=== PATIENT | male | born 1930 | race Caucasian/White ===

== ENCOUNTER 2017-10-10 10:33 | Outpatient (CLI) | payer MEDICARE | END 2017-10-10 10:34 | disposition home or self-care (01) | LOC: LABBT 10:33 | PROVIDERS: ATTEND Urology | DX: Z01.812 Encounter for preprocedural laboratory examination (principal); N13.30 Unspecified hydronephrosis | CPT/HCPCS: 80048; 85027; 85610; 85730 ==

== ENCOUNTER 2017-10-15 07:41 | Day surgery (SDC) | payer MEDICARE ==
[2017-10-10 13:15] VITALS: BMI 23.6
[2017-10-10 13:36] LABS: Anion Gap 11 mmol/L (10-20); BUN (Urea Nitrogen) 16 mg/dL (8.4-25.7); Calc. Creatinine Clearance 33 mL/min (70-130); Calcium 8.7 mg/dL (7.8-10.44); Carbon Dioxide 22 mmol/L (23-31); Chloride 110 mmol/L (98-107); Estimated GFR-MDRD 40; PTT 35.7 SEC (22.9-36.1); Prothrombin Time 16.3 SEC (12.0-14.7)
[2017-10-10 13:42] LABS: Hematocrit 37.1 % (42.0-52.0); Mean Platelet Volume 7.7 fL (7.4-10.4); Red Blood Cell (RBC) Count 4.21 mill/uL (4.70-6.10); White Blood Cell (WBC) Count 10.2 thou/uL (4.8-10.8)
[2017-10-15] MEDS ORDERED: cefTRIAXone\\ROCEPHIN 1 GM, Syringe 0.4 ML in Sterile Water 9.6 ML SLOW IVP SCH (10:00)
[2017-10-15] MEDS ORDERED: Fentanyl 100 MCG/2 ML VIAL ONE (10:28)
[2017-10-15] MEDS ORDERED: Iothalamate Meglumine 60% 50 ML VIAL FS ONE (10:38)
[2017-10-15] MEDS ORDERED: Lidocaine 1% PF 5 ML VIAL ONE (11:19)
[2017-10-15] MEDS ORDERED: Propofol 200 MG/20 ML VIAL ONE (11:19)
--- NOTE | 2017-10-15 12:32 | OP ---
DATE OF PROCEDURE: 10/15/2017 PREOPERATIVE DIAGNOSIS: Metastatic bladder cancer with obstructed left ureter, maintenance of left u reteral stent. POSTOPERATIVE DIAGNOSIS: Metastatic bladder cancer with obstructed left ureter, maintenance of left ureteral stent. PROCEDURES PERFORMED: Cystoscopy, removal of left stent, left retrograde, left stent replacement. SURGEON: Nathan Green M.D. ANESTHESIA: TIVA. ESTIMATED BLOOD LOSS: Minimal. DRAINS PLACED: New 4.8 x 24 cm double-J stent, no string was left attached to it. OPERATIVE TECHNIQUE: After obtaining written and verbal consent from the patient and after receiving IV antibiotics, he was taken to the operating suite. He was placed in the supine position on the tr eatment table. He was given some TIVA anesthetic. He was placed in the dorsal lithotomy position, s terilely prepped and draped, C-arm was brought in. Cystoscopy was performed with a 22-Bahraini sheath. This was well lubricated and passed under direct vision through the male urethra into the urinary b ladder with aid of a video camera and monitor. The bladder was filled and emptied a number of times. The distal end of the indwelling double-J stent was grasped and brought out through the urethral me atus. A guidewire was fed through this, but unfortunately it curled into the bladder. So we brought in a 5-Bahraini Pollack catheter and placed this into the left ureteral orifice and injected contrast to fill out the collecting system and fed a guidewire through it, removed the open-ended catheter and placed a stent over the guidewire, pushing up into place with aid of a pusher, so its proximal end c oiled in the renal pelvis and the distal end coiled in the bladder when the wire was removed. The bl adder was drained, the instruments were removed. He was taken out of dorsal lithotomy position, awak ened, extubated, and taken by stretcher to the recovery room.
--- NOTE | 2017-10-15 14:29 | RAD ---
RETROGRADE IVP: History: 87-year-old male with bladder cancer and left ureteral obstruction. Comparison: 05-23-17 FINDINGS: Two portable fluoroscopic spot images are presented for interpretation. There is contrast in the left upper collecting system. A left ureteral stent has been placed. IMPRESSION: Left ureteral stent placement. Mild dilatation of the left upper renal collecting system. Stable appe arance from prior study. POS: NADIA
== END 2017-10-15 13:12 | disposition home or self-care (01) ==
LOC: SDC 07:41
PROVIDERS: ATTEND Urology
PROC: 0T9780Z Drainage of Left Ureter with Drainage Device, Via Natural or Artificial Opening Endoscopic (ICD-10-PCS; principal; 2017-10-15)
DX: C67.9 Malignant neoplasm of bladder, unspecified (principal); C79.9 Secondary malignant neoplasm of unspecified site; N13.5 Crossing vessel and stricture of ureter without hydronephrosis; F03.90 Unspecified dementia, unspecified severity, without behavioral disturbance, psychotic disturbance, mood disturbance, and anxiety; E78.5 Hyperlipidemia, unspecified; I10 Essential (primary) hypertension; I25.10 Atherosclerotic heart disease of native coronary artery without angina pectoris; Z79.82 Long term (current) use of aspirin; Z79.01 Long term (current) use of anticoagulants; Z79.899 Other long term (current) drug therapy; Z98.42 Cataract extraction status, left eye; Z98.41 Cataract extraction status, right eye; Z96.1 Presence of intraocular lens; Z95.0 Presence of cardiac pacemaker; Z95.1 Presence of aortocoronary bypass graft; Z90.49 Acquired absence of other specified parts of digestive tract; Z90.89 Acquired absence of other organs; Z98.890 Other specified postprocedural states; Z87.891 Personal history of nicotine dependence
CPT/HCPCS: 52332; 74420; C1758; 80048; 85027; 85610; 85730; A4216; J0696; J2001; J2704; J3010; Q9961

== ENCOUNTER 2018-02-04 05:58 | Observation (INO) | payer MEDICARE ==
[2018-02-04 06:43] LABS: #Basophils 0.1 thou/uL (0.0-0.2); #Eosinphils 0.3 thou/uL (0.0-0.7); #Lymphocytes 2.2 thou/uL (1.20-3.40); #Monocytes 0.8 thou/uL (0.11-0.59); #Neutrophils 5.2 thou/uL (1.40-6.50); %Basophils 1.2 % (0.0-1.0); %Eosinophils 3.8 % (0.0-10.0); %Lymphocytes 25.1 % (21.0-51.0); %Neutrophils 60.9 % (42.0-75.0); Hemoglobin 11.2 g/dL (14.0-18.0); Mean Corpuscular HGB CONC 33.2 g/dL (32.0-36.0); Mean Corpuscular Hemoglobin 28.2 pg (27.0-31.0); Mean Corpuscular Volume 84.8 fl (80.0-94.0); Mean Platelet Volume 7.1 fL (7.4-10.4); Platelet Count 292 thou/uL (130-400); RBC Distribution Width 12.6 % (11.5-14.5); Red Blood Cell (RBC) Count 3.97 mill/uL (4.70-6.10); White Blood Cell (WBC) Count 8.6 thou/uL (4.8-10.8)
[2018-02-04] MEDS ORDERED: Fentanyl 250 MCG/5 ML VIAL ONE (06:52)
[2018-02-04 07:05] LABS: Anion Gap 10 mmol/L (10-20); BUN (Urea Nitrogen) 17 mg/dL (8.4-25.7); Calc. Creatinine Clearance 28 mL/min (70-130); Calcium 8.6 mg/dL (7.8-10.44); Carbon Dioxide 22 mmol/L (23-31); Chloride 111 mmol/L (98-107); Estimated GFR-MDRD 40; Glucose 93 mg/dL (83-110); Potassium 3.8 mmol/L (3.5-5.1); Sodium 139 mmol/L (136-145)
[2018-02-04] MEDS ORDERED: Iothalamate Meglumine 60% 50 ML VIAL FS ONE (07:07)
[2018-02-04] MEDS ORDERED: CEFAZOLIN/Water 2 GM/20 ML SYRINGE ONE (07:24)
--- NOTE | 2018-02-04 08:34 | OP ---
DATE OF PROCEDURE: 02/04/2018 PREOPERATIVE DIAGNOSES: Metastatic bladder cancer and obstructed left ureter managed with stent. POSTOPERATIVE DIAGNOSES: Metastatic bladder cancer and obstructed left ureter managed with stent. PROCEDURE PERFORMED: Cysto, removal of left stent, left retrograde, and stent replacement. SURGEON: Dr. Nathan Green ANESTHESIA: TIVA. ESTIMATED BLOOD LOSS: 50-75 mL. DRAINS PLACED: 4.8 x 24 double-J stent without a string attached on the left side and an 18 Bangladeshi F oley catheter was passed because he did have some bleeding. FINDINGS: He had no stricture disease, moderate BPH. He did have some regrowth of a tumor has some area of necrosis near the left ureteral orifice. It did have some problems with bleeding during the stent removal and replacement, for this reason a catheter was placed. The retrograde study showed he does not have at this point hydronephrosis, but I think this is because he has a stent in place. OPERATIVE TECHNIQUE: After obtaining written and verbal consent from the patient after receiving IV antibiotics, he was taken the operating suite. He was placed in the supine position on the treatment table. PlexiPulses were placed on his lower extremities and turned on. He was given a general anes thetic, oral obturator intubation. He was placed in the dorsal lithotomy position, sterilely prepped and draped. He was positioned under the C-arm. A geotechnical laboratory technician film was taken with fluoroscopy unit. Cyst oscopy was performed with a 22-Bangladeshi sheath. This was well lubricated and passed under direct visio n through the male urethra and into the urinary bladder with aid of a 30-degree lens and video camera and monitor. His bladder was filled and emptied a number of times. The distal end of the indwellin g stent was grasped and brought out through the urethral meatus. A guidewire was fed through it and the stent was removed off the guidewire and discarded. A 5 Bangladeshi Pollack catheter was placed over t he guidewire and up into the renal pelvis. The wire was removed. Contrast was injected filling out a nonobstructed collecting system down to the pelvic inlet. The wire was replaced. The open-ended c atheter was removed and a new 4.8 x 24 cm double-J stent was placed over the guidewire and pushed up in place with aid of a pusher so its proximal end coiled in the renal pelvis and its distal end coile d in the bladder when the wire was removed. The bladder was filled and emptied. There was some blee ding from the tumor site and it did not appear to be much and maybe to be related to him being on Irene mayra. A Harrison catheter there was placed because of this and will watch him for a little bit in regar ds to this urine. He may not be able go home today and will have him hold his Eliquis at this point. Normally we have been able to change these without him holding Eliquis without much difficulty. At this point, he was awakened, extubated, and taken by stretcher to the recovery room.
--- NOTE | 2018-02-04 09:21 | RAD ---
IVP RETROGRADE: Date: 02/04/18 HISTORY: Stent replacement. COMPARISON: IVP retrograde dated 10/15/17. FINDINGS: There is replacement of the left ureteral stent. On the last image, there is mild residual dilatation of the renal calices and renal pelvis, similar to the comparison examinations. IMPRESSION: Stent replacement. POS: NADIA
[2018-02-04] MEDS ORDERED: B & O ONE (12:14)
[2018-02-04] MEDS ORDERED: Sodium Chloride 0.9% 10 ML ONE (12:58)
[2018-02-04 14:33] VITALS: BMI 24.5
[2018-02-04] MEDS: D5 1/2 NS w/10 mEq KCl 1,000 ML/1,000 ML BAG IV SCH (16:12)
[2018-02-04] MEDS: hydrALAZINE 25 MG TAB PO SCH ×2 (16:12→21:28)
[2018-02-04] MEDS: Dronedarone HCl 400 MG TAB PO SCH (16:12)
[2018-02-04] MEDS ORDERED: Propofol 200 MG/20 ML VIAL ONE (17:03)
[2018-02-04] MEDS ORDERED: Lidocaine 1% PF 5 ML VIAL ONE (17:03)
[2018-02-04] MEDS ORDERED: Atorvastatin Calcium 20 MG TAB PO SCH (21:00)
[2018-02-04] MEDS ORDERED: Donepezil HCl 10 MG TAB PO SCH (21:00)
[2018-02-04] MEDS: B & O PR SCH ×2 (21:03→21:29)
[2018-02-04] MEDS: traMADol HCl 50 MG TAB PO PRN (21:28)
[2018-02-04] MEDS: Nitrofurantoin Monohyd/M-Cryst 100 MG CAP PO SCH (21:28)
[2018-02-05] MEDS: D5 1/2 NS w/10 mEq KCl 1,000 ML/1,000 ML BAG IV SCH (02:00)
[2018-02-05] MEDS: traMADol HCl 50 MG TAB PO PRN (02:36)
[2018-02-05] MEDS ORDERED: Potassium Chloride 10 MEQ TAB PO SCH (08:00)
[2018-02-05] MEDS: hydrALAZINE 25 MG TAB PO SCH (08:23)
[2018-02-05] MEDS: Dronedarone HCl 400 MG TAB PO SCH (08:23)
[2018-02-05] MEDS: Nitrofurantoin Monohyd/M-Cryst 100 MG CAP PO SCH (08:24)
[2018-02-05] MEDS ORDERED: Aspirin 81 mg Enteric Coated Tablet PO SCH (09:00)
[2018-02-05] MEDS ORDERED: Cyanocobalamin (Vitamin B-12) 1,000 MCG TAB PO SCH (09:00)
[2018-02-05] MEDS ORDERED: Lisinopril 20 MG TAB PO SCH (09:00)
[2018-02-05 12:50] VITALS: BP 175/81; TEMP 98.3
== END 2018-02-05 14:30 | disposition home or self-care (01) ==
LOC: SDC 05:58 → SURG B 12:40 → SJJU 13:18
PROVIDERS: ADMIT Urology; ATTEND Urology
PROC: 0T778DZ Dilation of Left Ureter with Intraluminal Device, Via Natural or Artificial Opening Endoscopic (ICD-10-PCS; principal; 2018-02-04)
PROC: 0TP98DZ Removal of Intraluminal Device from Ureter, Via Natural or Artificial Opening Endoscopic (ICD-10-PCS; 2018-02-04)
DX: C67.2 Malignant neoplasm of lateral wall of bladder (principal); I10 Essential (primary) hypertension; E78.00 Pure hypercholesterolemia, unspecified; I48.91 Unspecified atrial fibrillation; I25.10 Atherosclerotic heart disease of native coronary artery without angina pectoris; E78.5 Hyperlipidemia, unspecified; Z79.82 Long term (current) use of aspirin; Z79.01 Long term (current) use of anticoagulants; Z79.2 Long term (current) use of antibiotics; Z79.899 Other long term (current) drug therapy; Z95.1 Presence of aortocoronary bypass graft; Z95.0 Presence of cardiac pacemaker; Z98.890 Other specified postprocedural states
CPT/HCPCS: 52332; 74420; 80048; 85025; 93005; 96360; 96361 ×2; C1758; G0378; 36415; 93010; J2001; J2704; J3010; Q9961

== ENCOUNTER 2018-06-05 09:47 | Outpatient (CLI) | payer MEDICARE ==
[2018-06-05 10:51] LABS: Hemoglobin 10.5 g/dL (14.0-18.0); Mean Corpuscular HGB CONC 32.6 g/dL (32.0-36.0); Mean Corpuscular Hemoglobin 27.6 pg (27.0-31.0); Mean Corpuscular Volume 84.6 fL (78.0-98.0); Mean Platelet Volume 7.2 fL (7.4-10.4); Platelet Count 269 thou/uL (130-400); RBC Distribution Width 12.6 % (11.5-14.5); Red Blood Cell (RBC) Count 3.81 mill/uL (4.70-6.10); White Blood Cell (WBC) Count 8.4 thou/uL (4.8-10.8)
[2018-06-05 11:18] LABS: Anion Gap 11 mmol/L (10-20); BUN (Urea Nitrogen) 16 mg/dL (8.4-25.7); Calc. Creatinine Clearance 0 mL/min (70-130); Calcium 8.5 mg/dL (7.8-10.44); Carbon Dioxide 21 mmol/L (23-31); Chloride 111 mmol/L (98-107); Estimated GFR-MDRD 38; Glucose 88 mg/dL (83-110); Sodium 139 mmol/L (136-145)
[2018-06-05 12:02] LABS: INR-International Normal Ratio 1.3; PTT 36.4 SEC (22.9-36.1); Prothrombin Time 16.2 SEC (12.0-14.7)
== END 2018-06-05 09:48 | disposition home or self-care (01) ==
LOC: LABBT 09:47
PROVIDERS: ATTEND Urology
DX: Z01.812 Encounter for preprocedural laboratory examination (principal); N13.1 Hydronephrosis with ureteral stricture, not elsewhere classified; C67.2 Malignant neoplasm of lateral wall of bladder
CPT/HCPCS: 80048; 85027; 85610; 85730; 87086

== ENCOUNTER 2018-07-12 21:30 | Inpatient (IN) | payer MEDICARE ==
[2018-07-12 22:04] LABS: #Basophils 0.1 thou/uL (0.0-0.2); #Eosinphils 0.6 thou/uL (0.0-0.7); #Lymphocytes 2.4 thou/uL (1.20-3.40); #Monocytes 1.1 thou/uL (0.11-0.59); #Neutrophils 8.8 thou/uL (1.40-6.50); %Basophils 0.9 % (0.0-1.0); %Eosinophils 4.7 % (0.0-10.0); %Lymphocytes 18.3 % (21.0-51.0); %Monocytes 8.3 % (0.0-10.0); %Neutrophils 67.8 % (42.0-75.0); Hemoglobin 9.9 g/dL (14.0-18.0); Mean Corpuscular HGB CONC 33.5 g/dL (32.0-36.0); Mean Corpuscular Volume 83.5 fL (78.0-98.0); Mean Platelet Volume 6.9 fL (7.4-10.4); Platelet Count 312 thou/uL (130-400); RBC Distribution Width 13.1 % (11.5-14.5); Red Blood Cell (RBC) Count 3.54 mill/uL (4.70-6.10)
[2018-07-12 22:24] LABS: ALT (SGPT) 11 U/L (8-55); AST (SGOT) 15 U/L (5-34); Albumin 3.7 g/dL (3.4-4.8); Alkaline Phosphatase 77 U/L (40-150); Anion Gap 14 mmol/L (10-20); BUN (Urea Nitrogen) 21 mg/dL (8.4-25.7); Bilirubin, Total 0.4 mg/dL (0.2-1.2); Calc. Creatinine Clearance 0 mL/min (70-130); Calcium 8.5 mg/dL (7.8-10.44); Carbon Dioxide 20 mmol/L (23-31); Chloride 107 mmol/L (98-107); Estimated GFR-MDRD 30; Globulin 3.5 g/dL (2.4-3.5); Glucose 143 mg/dL (83-110); Potassium 4.1 mmol/L (3.5-5.1); Protein, Total 7.2 g/dL (5.8-8.1); Sodium 137 mmol/L (136-145)
[2018-07-12 23:23] LABS: INR-International Normal Ratio 1.1; Prothrombin Time 14.7 SEC (12.0-14.7)
[2018-07-12 23:24] LABS: PTT 32.7 SEC (22.9-36.1)
[2018-07-13] MEDS ORDERED: Ondansetron ODT 4 MG TAB SL PRN (01:59)
[2018-07-13] MEDS ORDERED: Ondansetron HCl/PF 4 MG/2 ML Vial IVP PRN (01:59)
[2018-07-13 02:58] LABS: Hemoglobin 9.3 g/dL (14.0-18.0); Platelet Count 264 thou/uL (130-400)
[2018-07-13] MEDS ORDERED: Sodium Chloride 0.9% 10 ML ONE (04:10)
[2018-07-13] MEDS ORDERED: Morphine 4 MG/ML VIAL SLOW IVP SCH (05:00)
[2018-07-13] MEDS ORDERED: Acetaminophen 500 MG TAB PO PRN (05:01)
[2018-07-13] MEDS ORDERED: Oxybutynin 5 MG TAB PO PRN (05:01)
[2018-07-13] MEDS ORDERED: traMADol HCl 50 MG TAB PO PRN (05:03)
[2018-07-13] MEDS ORDERED: Lorazepam 2 MG/ML VIAL SLOW IVP SCH ×2 (05:45→10:45)
[2018-07-13] MEDS ORDERED: diphenhydrAMINE 50 MG/ML VIAL IVP SCH (05:45)
[2018-07-13 06:09] LABS: Hemoglobin 8.3 g/dL (14.0-18.0); Platelet Count 248 thou/uL (130-400)
[2018-07-13] MEDS: Lisinopril 20 MG TAB PO SCH (08:44)
[2018-07-13] MEDS: Dronedarone HCl 400 MG TAB PO SCH ×2 (08:44→18:19)
[2018-07-13] MEDS: Potassium Chloride 10 MEQ TAB PO SCH (08:44)
[2018-07-13] MEDS: Docusate 100 MG CAP PO SCH ×2 (08:44→21:23)
[2018-07-13] MEDS: Metoprolol Tartrate 50 MG TAB PO SCH ×2 (08:44→21:23)
[2018-07-13] MEDS: Donepezil HCl 10 MG TAB PO SCH (08:44)
[2018-07-13] MEDS: Cyanocobalamin (Vitamin B-12) 1,000 MCG TAB PO SCH (08:44)
[2018-07-13] MEDS: hydrALAZINE 25 MG TAB PO SCH ×3 (08:44→21:23)
--- NOTE | 2018-07-13 09:44 | CON ---
DATE OF CONSULTATION: 07/13/2018 CONSULTING PHYSICIAN: Dr. Gallego. CONSULTED PHYSICIAN: Ayad Ball M.D. REASON FOR CONSULTATION: Gross hematuria with clot retention. HISTORY OF PRESENT ILLNESS: Mr. Andrews is an 88-year-old white male who is a patient of Dr. Borrero . He has a known history of bladder cancer which had previously been resected. He was on BCG treatm ents but unfortunately, the cancer has progressed to the point where the patient is considered BCG re fractory. During this time, the patient has started developing hematuria. I was contacted this even ing by the who stated that the patient was unable to urinate and was only having drops of blood and was in significant pain. I would recommend he be brought into the emergency room. He was taken into the ER where a 16 Bruneian Harrison catheter was placed with release of dark red urine which subseque ntly stopped flowing. The ER doctor called me and I recommended changing his catheter out to a 22-Fr ench three-way Harrison catheter so that his bladder could be irrigated and CBI could be initiated. Unf ortunately, the ER did not put in a 3-way catheter, but just put in a 22-Bruneian regular catheter. He was admitted to the floor and I was contacted again by the Hospitalist who stated that his catheter had clotted off and he was no longer draining. I again recommended that he had his catheter changed to a 3-way catheter. After removing the 22 Bruneian 2-way catheter, the nurses could not get the three -way catheter back in and the patient attempted to get up to go to the bathroom at which point he had a vasovagal episode and collapsed. A code was called, but the patient was not found to be in any ty pe of arrhythmia or arrest, but simply had a vasovagal episode. I was contacted for assistance and r eplacement of the catheter. When I discussed with the patient, he does not have any family at [facility]. His has left for the evening and his son is currently not available. I attempted to speak w ith the patient, but he is not answering questions and is relatively delirious and agitated and is no t answering questions appropriately. Most of the history is obtained either through the prior conver sation on the phone with the , nursing staff and medical team. ALLERGIES: None. HOME MEDICATIONS: 1. Aspirin. 2. Hydralazine. 3. Lisinopril. 4. Simvastatin. 5. Donepezil. 6. Eliquis. 7. Potassium chloride. 8. Metoprolol. 9. Vitamin D3. 10. Vitamin B12. PAST MEDICAL HISTORY: 1. Bladder cancer. 2. Hypertension. 3. High cholesterol. 4. Heart history unspecified. 5. Dementia. 6. Pancreatitis. PAST SURGICAL HISTORY: 1. CABG. 2. Cholecystectomy. 3. Carotid endarterectomy. 4. TURBT. 5. Pacemaker placement. FAMILY HISTORY: Noncontributory. SOCIAL HISTORY: Patient apparently lives at home with his . He is a former smoker, but had quit . There is no recorded history of illicit drug use or alcohol abuse. REVIEW OF SYSTEMS: A 12 point review of systems cannot be obtained as the patient is extremely agita bola, repeating that he has to urinate over and over and he is not otherwise answering questions. PHYSICAL EXAMINATION: VITAL SIGNS: Temperature 98.6, pulse 73, respirations 20, blood pressure 160/89, saturation 100% on room air. GENERAL: Agitated, combative and not answering questions. Appears stated age. Well-nourished, well -developed. HEENT: Normocephalic, atraumatic. Sclerae are nonicteric. Pupils are symmetric and round. CARDIOVASCULAR: Regular rate, somewhat irregular rhythm, although it is difficult on his tele record and by auscultation as the patient is extremely combative and moving around. Pulses appear symmetri c. CHEST: No increased work of breathing. Symmetric expansion of lungs. Clear anteriorly from what ca n be auscultated. ABDOMEN: Soft, nondistended. Tenderness in the suprapubic area. No rebound, guarding or peritoneal signs. No masses. There is distention of the bladder. GENITOURINARY: Patient is circumcised. There is blood at the meatus. Testes are bilaterally descen ded. Rectal exam was deferred. EXTREMITIES: No clubbing, cyanosis or edema. MUSCULOSKELETAL: No obvious joint deformities, joint erythema noted. Range of motions appears adequ ate, although the patient is not following commands for proper examination. SKIN: Warm, dry, no rashes or lesions. Poor turgor. NEUROLOGIC: Cranial nerves II-XII appear grossly intact. Neurological exam cannot be performed due to patient compliance. PSYCHIATRIC: The patient is alert. Orientation could not be assessed as patient again is not answer ing questions. He is extremely agitated currently and combative, attempting to get up out of bed and is not listening to the medical staff. LABORATORY DATA: Upon laboratory evaluation, a full set of labs are in the [employer] system, which I have reviewed. Of note, the patient's hemoglobin is currently 9.3 with hematocrit of 27. White coun t was 13 at admission. INR is 1.1, creatinine is currently 2.12. ASSESSMENT AND PLAN: An 88-year-old white male with hematuria and clot retention. The patient has h ad a catheter replaced and was not found to have a false passage as well, probably from multiple cath eter exchanges and possibly patient combativeness. A large amount of clot was irrigated out of his b ladder and CBI has been initiated with significant resolution of his hematuria. The patient is likel y actively still bleeding. However, this may stop with cessation of his Eliquis, which I would recom mend holding along with his aspirin. The patient has been admitted to the medicine service, which I agree with. I will continue to follow along to allow the hematuria to resolve on its own. In most c ases, the hematuria will stop once the patient's anticoagulation is reversed and the patient is less agitated for the time being given his altered mental status. I would recommend 4-point restraints wi th mitten gloves to avoid patient accidentally ripping his catheter out. We will continue the CBI in the meantime to avoid repeat clot retention and continue monitoring his other health issues. DESCRIPTION OF PROCEDURE: The patient was prepped and draped in the usual sterile fashion for cystos copy. A flexible cystoscope was passed with ease through the urethra. Near the bulbar urethra, the patient was noted to have a false passage. The prostate appears hyperemic, but otherwise again it wa s a little bit difficult to evaluate properly due to blood clots. We were able to pass the camera ul timately into the bladder which demonstrated extremely large clot. Visualization of the bladder is o therwise not possible. The patient does have known ureteral stents which were not visualized during the cystoscopy. An Amplatz Super Stiff wire was placed through the cystoscope into the bladder. The cystoscope was then removed. A 22-Bruneian three-way Harrison catheter was fashioned into a Councill tip catheter using a 14 gauge Angiocath needle, which was then guided over the Super Stiff wire into the bladder with ease. A 30 mL of sterile water placed into the balloon and the catheter hand irrigated with 1 liter of normal saline with evacuation of extremely large amount of clot. Upon removal of al l clots, the patient's urine was a goodwin red color. CBI was initiated which resulted in the urine t urning out light pink. This was then affixed to the patient's leg with a StatLock. Patient did comp vladimir of a lot of pain and will be given medications for bladder spasms and pain control to help these things, but did seem to feel much better once the procedure was completed. SUMMARY OF RECOMMENDATIONS: 1. Continue CBI. 2. Hold Eliquis and aspirin. 3. Antibiotic prophylaxis with Levaquin. 4. SCDs for DVT prophylaxis. 5. Medicine to manage patient's generalized medical problems. 6. We will continue to monitor the patient for resolution of his hematuria with holding of his antic oagulants. If the bleeding persists despite holding anticoagulants for several days, it may be magnolia coelho to take him to the operating room for cauterization of bleeding areas. I will continue to alex cabello over the weekend and I will discuss the case with Dr. Green, his primary urologist upon his return on Sunday.
[2018-07-13] MEDS ORDERED: Senokot 8.6 MG TAB PO PRN (10:45)
[2018-07-13] MEDS ORDERED: Bisacodyl 5 MG TAB PO PRN (10:45)
--- NOTE | 2018-07-13 11:52 | PDOC.EVN ---
Event Note - Event Note Event Note: h&p [id number]
--- NOTE | 2018-07-13 12:09 | HP ---
PRIMARY CARE PHYSICIAN: Morgan Barton M.D. UROLOGIST: Ayad Ball M.D. CHIEF COMPLAINT: Bloody urine. HISTORY OF PRESENT ILLNESS: This is an 88-year-old male with a known history of dementia, bladder cancer, status post resection who presented with a chief complaint of bloody urine and abdominal pain. Patient unfortunately at the time of my evaluation is rather delirious and unable to provide adequate history. He has a daughter at bedside who is not completely sure on the timeframe that his symptoms had started. REVIEW OF SYSTEMS: Remainder of the review of systems: CONSTITUTIONAL: No significant weight loss or gain. No fevers or chills within the last week that the daughter is aware of. HEENT: Patient is really unable to respond for me. CARDIOVASCULAR, RESPIRATORY, GI, GENITOURINARY; all really difficult to assess as the patient is conversant but unable to provide any answers. PAST MEDICAL HISTORY: 1. As per above, notable for bladder cancer. 2. Atrial fibrillation. 3. Coronary artery disease, status post CABG x4 in 2008. 4. Status post left heart catheterization in 1999. 5. Prior history of bradycardia as well. 6. Hypertension. 7. Hyperlipidemia. 8. Prior history of NSVT. 9. Right carotid endarterectomy in 2008. 10. Status post tonsillectomy and status post prostate biopsy. 11. Status post skin cancer removal. 12. Status post breast sebaceous cyst removal. HOME MEDICATIONS: Currently includes the following; cholecalciferol 1000 units p.o. daily, hydralazine 0.5 tab p.o. t.i.d., simvastatin 0.5 tab p.o. at bedtime , potassium chloride 10 mEq p.o. daily, metoprolol 50 mg p.o. b.i.d., tartrate or Lopressor, lisinopril 40 mg p.o. q.a.m., dronedarone or Multaq 400 mg p.o. b.i.d., donepezil 10 mg p.o. daily, cyanocobalamin 1000 mcg p.o. daily, aspirin 81 mg p.o. daily, apixaban 2.5 mg p.o. b.i.d. ALLERGIES: No known drug allergies. FAMILY HISTORY: The patient's daughter at bedside is not aware of any other family members with issues regarding hematuria and bladder cancer. SOCIAL HISTORY: The patient currently lives at home. He has a significant component of dementia. His daughter and two sons would be shared medical decision makers for him. They endorse him being FULL CODE at this point in time. PHYSICAL EXAMINATION: GENERAL: The patient is confused, is able to state his name only, oriented x1. HEENT: Normocephalic, atraumatic. Equal ocular motions are intact, slightly dry mucous membranes. CARDIOVASCULAR: S1, S2. No murmurs, rubs or gallops. Pulses 2+ bilateral upper extremities, no pitting pedal edema. RESPIRATORY: Limited anterior examination. No apparent conversational dyspnea. Does not participate actively with examination, but I do not appreciate any wheezes, rales or rhonchi. Lungs, grossly clear to auscultation bilaterally. GASTROINTESTINAL: Positive bowel sounds. Soft, nontender to palpation that I can elicit. GENITOURINARY: Patient currently has a 3-way Harrison catheter in place that is undergoing continuous bladder irrigation. Urine in the bag is a pale pink color. LABORATORY DATA: WBC 13.0, hemoglobin 9.9, hematocrit 29.6, platelets 312. PT 14.7, INR 1.1. Sodium 137, potassium 4.1, chloride 107, bicarbonate 20, BUN 21 , creatinine 2.12, glucose 142, calcium 8.4, total bilirubin 0.4, AST 15, ALT 11 , alkaline phosphatase 77, total protein 7.2, albumin 3.7, patient's creatinine of 2.12 appears to demonstrate probable acute kidney injury on chronic renal disease with a baseline creatinine hovering anywhere from 1.6-1.8. ASSESSMENT AND PLAN: An 88-year-old male presenting with chief complaint of hematuria and abdominal pain. 1. Hematuria and abdominal pain with concern for a cystic clot. Appreciate Urology consultation. The patient is currently on a 3-way catheter, undergoing continuous bladder irrigation. Patient has been moved over to [facility] due to nursing concern of inability to co-manage patient's CBI due to staffing issues. The patient will have serial hemoglobin and hematocrit to monitor for any acute blood loss anemia. We will transfuse as needed for goal hemoglobin greater than 8 given the known history of cardiovascular disease as noted above. 2. Delirium. Likely secondary to multiple factors. I will continue supportive care. Sitter currently at bedside. The patient at risk for self removing medical assistive devices. 3. Probable acute kidney injury on chronic renal disease. We will continue with gentle IV hydration. Continue to closely monitor. 4. History of coronary artery disease, status post coronary artery bypass graft. Continue the patient on his home medications. Hold off on utilization of any pharmacological deep venous thrombosis prophylaxis. Hold off on anticoagulation at this point in time. 5. Diet: Cardiac. 6. Activity: As tolerated. 7. Deep venous thrombosis prophylaxis, sequentials. MTDD
[2018-07-13 12:10] LABS: Hemoglobin 7.7 g/dL (14.0-18.0); Platelet Count 249 thou/uL (130-400)
--- NOTE | 2018-07-13 13:10 | PRG ---
DATE OF SERVICE: 07/13/2018 SUBJECTIVE: The patient is currently sedated. He was extremely agitated overnight. He has a histor y of Alzheimer's and gets delirious very easily. He is currently restrained and has been receiving s edatives to keep him comfortable. He is not answering questions, but his family is at bedside statin g that he has been relatively comfortable while he has been asleep. He did have a few more blood magdaleno ts in the bladder, which were irrigated out by the nurse and his CBI is now running well. OBJECTIVE: VITAL SIGNS: Temperature 97.6, pulse 77, respirations 16, blood pressure 106/51, saturations 100% on room air. GENERAL: Currently, sedated and sleeping, breathing on his own. Appears calm. The patient was not awakened due to his agitation. CARDIOVASCULAR: Paced, but regular rate and rhythm. Normal S1 and S2. CHEST: No increased work of breathing. ABDOMEN: Soft, nontender, nondistended. The patient did not flinch with bladder palpation. GENITOURINARY: Harrison catheter appears secured with relatively clear urine running on a moderate CBI drip. EXTREMITIES: SCDs on. No clubbing, cyanosis, or edema. Four-point restraints and hand mittens are also in place. LABORATORY EVALUATION: The full set of labs are in the [facility], which I have reviewed. Of nancy parekh, patient's hemoglobin is currently 7.7. Creatinine has not been rechecked this morning, but was last 2.12. ASSESSMENT AND PLAN: An 88-year-old white male with Alzheimer's disease, dementia, and current alter ed mental status and delirium with hematuria, currently on anticoagulation, which has been held, but has not yet cleared out of his system. I would recommend continuation of his CBI in restraints, as t he patient is extremely high risk for pulling his catheter out. I do anticipate that his hematuria m ay clear significantly once his anticoagulation has been held, but this will take at least 48 hours f or the Eliquis to leave his system. We will continue to monitor and keep his bladder irrigation runn ing while the Eliquis gets out of his system, at which point he may be amenable to see if his CBI can be stopped. His catheter will need to remain in for at least 7 days given that he does have a false passage that was created in the attempt by nursing staff to place the 3-way Harrison catheter. This ca n be removed at a later date after adequate healing of the urethra. Medical management continued per Medicine team. I will continue to follow until Sunday, at which point I will turn the case over to Dr. Green again.
--- NOTE | 2018-07-13 15:40 | CON ---
DATE OF SERVICE: 07/13/2018 SERVICE: Pulmonary Medicine. REASON FOR CONSULTATION: [facility] patient. HISTORY OF PRESENT ILLNESS: Patient is an 88-year-old white male with past medical history significant for transition cell carcinoma. He underwent a scraping of the bladder cancer a week ago. He also has atrial fibrillation and is on chronic anticoagulation. Shortly following this procedure, he started having hematuria. He was brought into the hospital and underwent continuous bladder irrigation. The bleeding did not stop. The irrigation rate was increased, but ultimately, his nursing requirements prevented him from getting adequate care on the floor. As such, he was transitioned to the [facility]. He received morphine and Ativan in order to prevent significant agitation associated with his underlying dementia. He is hypersomnolent at this point. With stimulation, he will wake up, but within 3 seconds, he will drift brought back into sleep. He cannot provide any additional elements of the history at this time. PAST MEDICAL HISTORY: 1. Transition cell carcinoma of the bladder. 2. Atrial fibrillation, chronic. 3. Coronary artery disease. 4. Hypertension. 5. Dyslipidemia. 6. History of nonsustained ventricular tachycardia. PAST SURGICAL HISTORY: 1. Coronary bypass graft in 2008. 2. Cardiac catheterization in 1999. 3. Right carotid endarterectomy. 4. Tonsillectomy. 5. Prostate biopsy. 6. Excision of skin cancer. 7. Sebaceous cyst excision. ALLERGIES: No known drug allergies. MEDICATIONS: List of his inpatient medications were reviewed. No specific updates were made at this time. FAMILY HISTORY: Noncontributory. SOCIAL HISTORY: He lives at home. He is fairly functional in his ADLs. He is able to dress himself and get around under his own volition. He is not able to drive any longer because of mentation issues and no longer does the finances. I have had a conversation with both , son at bedside. They are suggesting to me at this time that if he were to get worse and not better, they would like to transition over to comfort care only understanding that he be passing away during this hospital stay. REVIEW OF SYSTEMS: This cannot be obtained because the patient is currently under the influence of sedating medications. PHYSICAL EXAMINATION: VITAL SIGNS: Afebrile, pulse 77, blood pressure 111/49, respirations 16, saturation 100% on room air. GENERAL: The patient is somnolent. HEENT: Normocephalic, atraumatic. Sclerae are white, conjunctivae pink. Oral mucosa is moist without lesions. LUNGS: Excellent air entry. There is no prolonged expiratory phase, wheezing, rhonchi or crackles. HEART: Normal rate, regular. ABDOMEN: Soft, nontender, nondistended. Bowel sounds are positive. MUSCULOSKELETAL: No cyanosis or clubbing. There is no pitting in the bilateral lower extremities. NEUROLOGIC: Grossly nonfocal. LABORATORY DATA: WBC 13.0, hemoglobin has steadily declined from 9.9-7.7 over 4 blood draws. INR 1.1. Creatinine 2.12, slightly above baseline. Basic metabolic profile and liver function studies are otherwise unremarkable. ASSESSMENT: 1. Transition cell carcinoma. 2. Acute blood loss anemia. 3. Hematuria. 4. Metabolic encephalopathy. 5. Alzheimer disease, advanced. DISCUSSION AND PLAN: We will continue CBI and decrease the rate as he continues to clear. Pulmonary Critical Care will continue to follow in this location. We will repeat hemoglobin in another 4-6 hours. If his hemoglobin drops any further, transfusion will be performed. Pulmonary Critical Care will continue to follow along. It appears that he is clearing his urine. Hopefully , in 24-48 hours, he will be in a position where we get him back to the floor. The family is very concerned that the Harrison catheter is going to have to stay in place for a full 7 days. It is nearly impossible for them that to accomplish this in the home setting. As such, requesting that we consider transitioning him to a nursing facility for a brief period of time until the Harrison can be removed. We will have case management look into that. Furthermore , we had a conversation today about code status. They have decided to transition him over to a DNI/DNR. We will do everything we can from up to a point if he needs endotracheal intubation or chest compressions. These maneuvers would not be performed. They understand that if he required and we do not do them, he would be passing away during the hospital stay. It is not my expectation that this will occur, but if it does, it is always good to know what to do in advance. 70 minutes have been devoted to this patient in various activities. I personally reviewed all imaging studies and laboratory data noted within this document. For fifty percent of this time, I was interacting with the patient at the bedside or coordinating care with the care team. For the remainder of the time I was immediately available to the patient in the hospital unit. PANKAJ
[2018-07-13 19:28] LABS: Hemoglobin 7.6 g/dL (14.0-18.0); Platelet Count 256 thou/uL (130-400)
[2018-07-13] MEDS: Famotidine/PF 20 mg/2ml Vial SLOW IVP SCH (21:16)
[2018-07-13] MEDS: Atorvastatin Calcium 10 MG TAB PO SCH (21:23)
[2018-07-14 00:52] LABS: Hemoglobin 6.9 g/dL (14.0-18.0); Platelet Count 212 thou/uL (130-400)
[2018-07-14 03:43] LABS: #Basophils 0.1 thou/uL (0.0-0.2); #Lymphocytes 2.2 thou/uL (1.20-3.40); #Monocytes 1.1 thou/uL (0.11-0.59); #Neutrophils 10.9 thou/uL (1.40-6.50); %Basophils 0.4 % (0.0-1.0); %Eosinophils 0.3 % (0.0-10.0); %Lymphocytes 15.6 % (21.0-51.0); %Monocytes 7.5 % (0.0-10.0); %Neutrophils 76.1 % (42.0-75.0); Hemoglobin 7.1 g/dL (14.0-18.0); Mean Corpuscular HGB CONC 33.5 g/dL (32.0-36.0); Mean Corpuscular Hemoglobin 28.3 pg (27.0-31.0); Mean Corpuscular Volume 84.7 fL (78.0-98.0); Platelet Count 220 thou/uL (130-400); RBC Distribution Width 13.6 % (11.5-14.5); Red Blood Cell (RBC) Count 2.49 mill/uL (4.70-6.10); White Blood Cell (WBC) Count 14.3 thou/uL (4.8-10.8)
[2018-07-14] MEDS: Hyoscyamine Sulfate SL 0.125 mg Tablet SL PRN ×2 (03:55→14:51)
[2018-07-14 04:05] LABS: Anion Gap 15 mmol/L (10-20); BUN (Urea Nitrogen) 27 mg/dL (8.4-25.7); Calc. Creatinine Clearance 20 mL/min (70-130); Calcium 8.3 mg/dL (7.8-10.44); Carbon Dioxide 19 mmol/L (23-31); Chloride 108 mmol/L (98-107); Estimated GFR-MDRD 25; Glucose 109 mg/dL (83-110); Potassium 4.3 mmol/L (3.5-5.1); Sodium 138 mmol/L (136-145)
[2018-07-14 05:56] LABS: Hemoglobin 6.5 g/dL (14.0-18.0); Platelet Count 203 thou/uL (130-400)
[2018-07-14] MEDS: hydrALAZINE 25 MG TAB PO SCH ×3 (10:36→21:37)
[2018-07-14] MEDS: Lisinopril 20 MG TAB PO SCH (10:36)
[2018-07-14] MEDS: Potassium Chloride 10 MEQ TAB PO SCH (10:38)
[2018-07-14] MEDS: Metoprolol Tartrate 50 MG TAB PO SCH ×2 (11:13→21:37)
[2018-07-14] MEDS: Cyanocobalamin (Vitamin B-12) 1,000 MCG TAB PO SCH (11:14)
[2018-07-14] MEDS: Docusate 100 MG CAP PO SCH ×2 (11:15→21:36)
[2018-07-14] MEDS: Dronedarone HCl 400 MG TAB PO SCH ×2 (11:15→18:17)
[2018-07-14] MEDS: Donepezil HCl 10 MG TAB PO SCH (11:18)
--- NOTE | 2018-07-14 12:01 | PRG ---
DATE OF SERVICE: 07/14/2018 SERVICE: Pulmonary Medicine. INTERVAL HISTORY: The patient is doing quite a bit better from a bladder standpoint. The urine is actually clearing. Today, it is didi colored. He is having fewer episodes of clotting that causes bladder outlet obstruction. These episodes are also becoming a little bit less severe as time goes on. He has been irrigated very heavily over the last 48 hours. PHYSICAL EXAMINATION: VITAL SIGNS: Afebrile, pulse 72, respirations 18, saturation 100% on room air, blood pressure 136/46. HEENT: Normocephalic, atraumatic. Sclerae are white, conjunctivae pink. Oral and nasal mucosa is moist without lesions. LUNGS: Decent air entry. There is no prolonged expiratory phase, wheezing, rhonchi, or crackles present. HEART: Normal rate and regular. ABDOMEN: Soft, nontender, nondistended. Bowel sounds are positive. MUSCULOSKELETAL: No cyanosis or clubbing. There is no pitting in the bilateral lower extremities. NEUROLOGIC: Grossly nonfocal. LABORATORY DATA: WBC 14.3 and roughly stable, hemoglobin downtrending to 6.5. Basic metabolic profile is, otherwise, unremarkable. Creatinine 2.47 and up- trending. BUN 27. Basic metabolic profile is, otherwise, unremarkable. ASSESSMENT: 1. Transitional cell carcinoma. 2. Acute blood loss anemia. 3. Hematuria. 4. Metabolic encephalopathy. 5. Alzheimer's disease, severe. DISCUSSION AND PLAN: The patient is tolerating continuous bladder irrigation quite well today. He will remain in the IMCU until his nursing requirements decrease a little bit. Pulmonary Critical Care will continue to follow along in this location. He is getting a unit of blood right now. We will trend hemoglobins through time to make certain that we keep him above 7. MTDD
[2018-07-14] MEDS: Sodium Chloride 0.9% 1,000 ML IV SCH (12:08)
--- NOTE | 2018-07-14 13:11 | PRG ---
DATE OF SERVICE: 07/14/2018 SUBJECTIVE: The patient is doing much better this morning. He actually is conversing quite well. Colleen cool did have a few episodes of clotting overnight which required bladder irrigation manually, but his C BI has been running well otherwise and he has not had any significant episodes of red urine. He is n ot complaining of any pain, bladder spasms or discomfort. PHYSICAL EXAMINATION: VITAL SIGNS: Temperature 98.3, pulse 72, respirations 16, blood pressure 114/60, saturation 100% on room air. GENERAL: No apparent distress, alert and oriented x1. He is actually answering questions today, has poor memory of what has been going on and does not really understand why he is in the hospital. CHEST: No increased work of breathing. CARDIOVASCULAR: Regular rate and rhythm. ABDOMEN: Soft, nontender, nondistended, positive bowel sounds. GENITOURINARY: Harrison catheter secured in place with a StatLock with CBI running relatively clear, ex tremely light peach-colored urine which is translucent without clots. EXTREMITIES: No clubbing, cyanosis or edema. LABORATORY DATA: The full set of labs in the [employer] system, which I have reviewed. Of note, the huang kwon's hemoglobin is currently 6.5 and he is receiving blood today. A repeat hemoglobin checks hav e already been ordered. Creatinine has increased up to 2.47 from 2.12 yesterday. ASSESSMENT AND PLAN: An 88-year-old white male with bladder cancer, status post transurethral resect ion of bladder tumor, previously on Eliquis and aspirin with hematuria, clot retention and [place] age. He currently has a catheter in on continuous bladder irrigation at a moderate drip, which is re latively clear. I do expect intermittent bleeding if during agitation episodes which may result in a small layering of blood which can cause small clots. These can be manually irrigated out by the [facility] staff, but the CBI should be continued. The Eliquis should almost be out of his system and at t his point, I think the bleeding looks like it has slowed down significantly and may stop soon. Hopef ully, with the Eliquis out of his system and if his urine remains clear, his continuous bladder irrig ation can be held and he can be monitored to see if the continuous bladder irrigation can be disconti nued altogether. Regardless, he will need to keep the catheter in for at least 7 days from its initi al placement on the due to the false passage that was created. His family states that they have a great deal of difficulty managing him at home when he has his delirious episode due to his Alzheim er's and he probably will require placement in a alf facility during that time that he valencia s his Harrison catheter to avoid him pulling it out and causing worsening prosthetic and urethral trauma . Regarding his kidney function, he does appear to have a slightly worsening acute kidney injury. T his is probably secondary to anemia, but I would like to confirm with a renal ultrasound that there i s no progressive obstruction of his stents due to his malignancy or due to other problems. We will o rder a renal ultrasound to ensure that there is mild to no hydronephrosis. If so, then we will proba cipriano just continue monitoring his kidney function and if it gets worse, a Nephrology consult may be ad vised. Dr. Green is going to resume care tomorrow as this is his patient. I will check out to him tonight and Dr. Green will take over tomorrow.
[2018-07-14 14:20] LABS: Hemoglobin 7.6 g/dL (14.0-18.0); Platelet Count 183 thou/uL (130-400)
--- NOTE | 2018-07-14 15:25 | ULT ---
BILATERAL RENAL ULTRASOUND: Date: 07/14/18 COMPARISON: None. HISTORY: Renal failure and acute kidney injury. TECHNIQUE: Multiplanar Pace scale and color Doppler images were obtained in a renal ultrasound. FINDINGS: The kidneys demonstrate cortical thinning but are normal in echogenicity. There is no hydronephrosis or shadowing calculi. The kidneys measure 9.6 and 9.3 cm in length on the right and left, respectivel y. Harrison catheter decompresses the urinary bladder. IMPRESSION: No significant renal abnormality. POS: C
[2018-07-14] MEDS ORDERED: Ziprasidone 20 MG VIAL IM SCH (16:45)
[2018-07-14] MEDS: Atorvastatin Calcium 10 MG TAB PO SCH (21:36)
[2018-07-14] MEDS: Famotidine/PF 20 mg/2ml Vial SLOW IVP SCH (21:37)
--- NOTE | 2018-07-14 21:52 | PDOC.PN ---
- Subjective Encounter Start Date: 07/14/18 Encounter Start Time: 11:45 Subjective: pt up in bed oriented x2 -: family at bedside - Objective Resuscitation Status: Resuscitation Status DNR:Do Not Resuscitate Vital Signs & Weight: Vital Signs (12 hours) Temp Pulse Pulse Resp BP BP BP 07/14/18 21:37 91 156/67 H 07/14/18 19:41 98.5 F 77 23 H 125/47 L 07/14/18 15:15 97.9 F 71 16 123/54 L 07/14/18 12:11 98.3 F 70 16 114/60 07/14/18 11:01 97.5 F L 78 18 136/46 L 07/14/18 10:28 98.1 F 70 16 109/52 L Pulse Ox 07/14/18 21:37 07/14/18 19:41 98 07/14/18 15:15 100 07/14/18 12:11 100 07/14/18 11:01 100 07/14/18 10:28 100 Weight Weight 153 lb I&O: 07/13/18 07/14/18 07/15/18 06:59 06:59 06:59 Intake Total 158.5 340 727 Output Total 2575 65583 925 Balance -2416.5 -84713 -198 Result Diagrams: 07/14/18 14:09 07/14/18 03:30 Phys Exam - Physical Examination Neck: no nodes, no JVD, supple, full ROM Respiratory: no wheezing, no rales, no rhonchi, wheezing present, clear to auscultation bilateral Cardiovascular: RRR, no significant murmur, no rub, gallop, irregular Gastrointestinal: soft, non-tender, no distention, positive bowel sounds Dx/Plan (1) Hematuria Code(s): R31.9 - HEMATURIA, UNSPECIFIED Status: Acute (2) Acute blood loss anemia Code(s): D62 - ACUTE POSTHEMORRHAGIC ANEMIA Status: Acute (3) TABITHA (acute kidney injury) Code(s): N17.9 - ACUTE KIDNEY FAILURE, UNSPECIFIED Status: Acute (4) Bladder cancer Status: Acute - Plan pt received one unit of blood -: pt on 3 way martinez cath -: pt has periods of clarity but will continue soft restraints due to risk of -: pulling out martinez. Per nursing and family pt had his martinez replaced x3 * . Review of Systems - Review of Systems Respiratory: negative: Cough, Dry, Shortness of Breath, Hemoptysis, SOB with Excertion, Pleuritic Pain, Sputum, Wheezing Cardiovascular: negative: chest pain, palpitations, orthopnea, paroxysmal nocturnal dyspnea, edema, light headedness, other - Medications/Allergies Allergies/Adverse Reactions: Allergies Allergy/AdvReac Type Severity Reaction Status Date / Time No Known Allergies Allergy Verified 06/05/18 09:59 Medications: Current Medications Acetaminophen (Tylenol) 500 mg PO Q4H PRN PRN Reason: ANGEL/Fever > 101F/mild pain(1-3) Hydrocodone Bitart/Acetaminophen ([place] 5/325) 1 tab PO Q4H PRN PRN Reason: Moderate Pain (4-6) Atorvastatin Calcium (Lipitor) 10 mg PO HS [facility] Last Admin: 07/14/18 21:36 Dose: 10 mg Bisacodyl (Dulcolax) 10 mg PO DAILYPRN PRN PRN Reason: Constipation Cyanocobalamin (Vitamin B-12) 1,000 mcg PO DAILY [facility] Last Admin: 07/14/18 11:14 Dose: 1,000 mcg Diphenhydramine HCl (Benadryl) 25 mg PO Q6H PRN PRN Reason: Itching Docusate Sodium (Colace) 100 mg PO BID [facility] Last Admin: 07/14/18 21:36 Dose: 100 mg Donepezil HCl (Aricept) 10 mg PO DAILY [facility] Last Admin: 07/14/18 11:18 Dose: 10 mg Dronedarone (Multaq) 400 mg PO BID[facility] Last Admin: 07/14/18 18:17 Dose: 400 mg Famotidine (Pepcid) 20 mg SLOW IVP QPM [facility] Last Admin: 07/14/18 21:37 Dose: 20 mg Hydralazine HCl (Apresoline) 25 mg PO TID [facility] Last Admin: 07/14/18 21:37 Dose: 25 mg Hyoscyamine Sulfate (Levsin Sl) 0.25 mg SL Q6H PRN PRN Reason: Bladder Spasms Last Admin: 07/14/18 14:51 Dose: 0.25 mg Levofloxacin 500 mg/ Device 100 mls @ 100 mls/hr IVPB Q24HR [facility] Stop: 07/20/18 05:16 Last Admin: 07/14/18 05:23 Dose: 100 mls Sodium Chloride (Normal Saline 0.9%) 1,000 mls @ 50 mls/hr IV .Q20H [facility] Last Admin: 07/14/18 12:08 Dose: 1,000 mls Lisinopril (Zestril) 40 mg PO QAM [facility] Last Admin: 07/14/18 10:36 Dose: Not Given Metoprolol Tartrate (Lopressor) 50 mg PO BID [facility] Last Admin: 07/14/18 21:37 Dose: 50 mg Morphine Sulfate (Morphine) 2 mg IVP Q2H PRN PRN Reason: Moderate Pain (4-6) Last Admin: 07/14/18 16:22 Dose: 2 mg Oxybutynin Chloride (Ditropan) 5 mg PO Q8H PRN PRN Reason: Bladder Spasms Last Admin: 07/14/18 11:15 Dose: 5 mg Potassium Chloride (Klor-Con 10) 10 meq PO DAILY [facility] Last Admin: 07/14/18 10:38 Dose: Not Given Senna (Senokot) 2 tab PO HSPRN PRN PRN Reason: Constipation Sodium Chloride (Flush - Normal Saline) 10 ml IVF PRN PRN PRN Reason: Saline Flush Last Admin: 07/13/18 21:18 Dose: 10 ml Tramadol HCl (Ultram) 50 mg PO Q6H PRN PRN Reason: Moderate Pain (4-6)
[2018-07-14] MEDS: diphenhydrAMINE 25 MG CAP PO PRN (22:56)
[2018-07-15 05:21] LABS: #Basophils 0.1 thou/uL (0.0-0.2); #Eosinphils 0.2 thou/uL (0.0-0.7); #Lymphocytes 1.7 thou/uL (1.20-3.40); #Neutrophils 6.4 thou/uL (1.40-6.50); %Basophils 0.6 % (0.0-1.0); %Eosinophils 1.6 % (0.0-10.0); %Lymphocytes 18.7 % (21.0-51.0); %Monocytes 10.8 % (0.0-10.0); %Neutrophils 68.3 % (42.0-75.0); Hemoglobin 7.3 g/dL (14.0-18.0); Mean Corpuscular HGB CONC 34.4 g/dL (32.0-36.0); Mean Corpuscular Hemoglobin 29.3 pg (27.0-31.0); Mean Corpuscular Volume 85.1 fL (78.0-98.0); Mean Platelet Volume 7.4 fL (7.4-10.4); Platelet Count 190 thou/uL (130-400); RBC Distribution Width 13.6 % (11.5-14.5); Red Blood Cell (RBC) Count 2.48 mill/uL (4.70-6.10); White Blood Cell (WBC) Count 9.3 thou/uL (4.8-10.8)
[2018-07-15 05:39] LABS: Anion Gap 13 mmol/L (10-20); BUN (Urea Nitrogen) 32 mg/dL (8.4-25.7); Calc. Creatinine Clearance 17 mL/min (70-130); Calcium 8.3 mg/dL (7.8-10.44); Carbon Dioxide 19 mmol/L (23-31); Chloride 109 mmol/L (98-107); Estimated GFR-MDRD 20; Glucose 70 mg/dL (83-110); Sodium 137 mmol/L (136-145)
[2018-07-15] MEDS: Sodium Chloride 0.9% 1,000 ML IV SCH (08:27)
[2018-07-15] MEDS: Donepezil HCl 10 MG TAB PO SCH (08:28)
[2018-07-15] MEDS: Dronedarone HCl 400 MG TAB PO SCH ×2 (08:28→17:33)
[2018-07-15] MEDS: Metoprolol Tartrate 50 MG TAB PO SCH ×2 (08:28→21:49)
[2018-07-15] MEDS: Cyanocobalamin (Vitamin B-12) 1,000 MCG TAB PO SCH (08:29)
[2018-07-15] MEDS: hydrALAZINE 25 MG TAB PO SCH ×3 (08:29→21:49)
[2018-07-15] MEDS: Docusate 100 MG CAP PO SCH ×2 (08:30→21:49)
[2018-07-15] MEDS: Potassium Chloride 10 MEQ TAB PO SCH (08:31)
[2018-07-15] MEDS: Lisinopril 20 MG TAB PO SCH (08:31)
--- NOTE | 2018-07-15 13:15 | PRG ---
DATE OF SERVICE: 07/15/2018 SERVICE: Pulmonary Medicine. INTERVAL HISTORY: The patient is doing fine from a respiratory standpoint. He is breathing comfortably. There has been no interval change to his condition. Overnight, he had a fairly intense episode of sundowning. He was very agitated and got some antipsychotic medication. After that, he stayed awake the entire night and did not get any rest. This morning, he is sleeping. His bladder is becoming less bloody. It is very lightly didi colored at this point. He has not had any episodes of requiring aspiration clots in the last 24 hours. PHYSICAL EXAMINATION: VITAL SIGNS: Afebrile, pulse 73, blood pressure 106/51, respirations 14, saturation 100% on room air. GENERAL: The patient is awake and alert, in no apparent distress. LUNGS: Excellent air entry. There is no prolonged expiratory phase. HEART: Normal rate, regular. ABDOMEN: Soft, nontender, nondistended. Bowel sounds are positive. MUSCULOSKELETAL: No cyanosis or clubbing. There is no pitting in the bilateral lower extremities. NEUROLOGIC: Grossly nonfocal. LABORATORY DATA: WBC 9.3, hemoglobin 7.3, platelets 190,000. Creatinine 2.98 and stabilizing, BUN 32, bicarbonate 19, chloride 109. Basic metabolic profile is otherwise unremarkable. IMAGING: Ultrasound of the bilateral kidneys demonstrates no significant renal abnormality. No hydronephrosis is noted. ASSESSMENT: 1. Transition cell carcinoma. 2. Acute blood loss anemia secondary to hematuria. 3. Metabolic encephalopathy. 4. Alzheimer disease, severe. 5. Acute kidney injury. DISCUSSION AND PLAN: The patient's urine is clearing. If Dr. Green is okay with it, I think the patient cannot be managed in the medical unit. We will get a basic metabolic profile and an H&H in the morning. At this point, I see no requirements for frequent hemoglobin checks. He is clearly not bleeding significantly from the bladder any longer. [facility]
--- NOTE | 2018-07-15 16:18 | PDOC.PN ---
- Subjective Encounter Start Date: 07/15/18 Encounter Start Time: 12:10 -: old records requested/rev Pt seen and examined, chart reviewed in its entirety, this is my first visit with this patient No F/C, no N/V/d/c, no CP or SOB, no cough, no GI bleeding Pt pleasantly demented, oriented x 1 only. CBI on hold awaiting Dr Peter garcia ROS not obtainable - Objective Resuscitation Status: Resuscitation Status DNR:Do Not Resuscitate MAR Reviewed: Yes Vital Signs & Weight: Vital Signs (12 hours) Temp Pulse Resp BP BP Pulse Ox 07/15/18 14:05 74 16 124/51 L 100 07/15/18 11:01 97.6 F 73 14 106/51 L 100 07/15/18 08:29 71 148/55 H 07/15/18 07:43 98.6 F 82 20 144/53 H 99 07/15/18 07:20 98.0 F 81 15 99 Weight Weight 153 lb I&O: 07/14/18 07/15/18 07/16/18 06:59 06:59 06:59 Intake Total 340 1677 Output Total 00045 7824 700 [facility] -30080 -248 -700 Result Diagrams: 07/15/18 04:19 07/15/18 04:19 Radiology Reviewed by me: Yes EKG Reviewed by me: Yes Phys Exam - Physical Examination Constitutional: NAD HEENT: PERRLA, moist MMs, sclera anicteric, oral pharynx no lesions Neck: no nodes, no JVD, supple, full ROM Respiratory: no wheezing, no rales, no rhonchi, clear to auscultation bilateral Cardiovascular: RRR, no significant murmur, no rub Gastrointestinal: soft, non-tender, no distention, positive bowel sounds Musculoskeletal: pulses present, edema present Neurological: non-focal, normal sensation, moves all 4 limbs Lymphatic: no nodes Psychiatric: normal affect Skin: no rash, normal turgor, cap refill <2 seconds Dx/Plan - Plan cont current plan of care, PT/OT, social work job titles, out of bed/ambulate * . follow up on urology recommendations
[2018-07-15] MEDS: Famotidine 20 MG TAB PO SCH (21:49)
[2018-07-15] MEDS: Atorvastatin Calcium 10 MG TAB PO SCH (21:49)
[2018-07-16 03:47] LABS: Hemoglobin 7.2 g/dL (14.0-18.0)
[2018-07-16 03:48] LABS: #Basophils 0.1 thou/uL (0.0-0.2); #Eosinphils 0.4 thou/uL (0.0-0.7); #Lymphocytes 1.5 thou/uL (1.20-3.40); #Monocytes 0.8 thou/uL (0.11-0.59); %Eosinophils 4.6 % (0.0-10.0); %Lymphocytes 19.8 % (21.0-51.0); %Monocytes 9.8 % (0.0-10.0); %Neutrophils 64.9 % (42.0-75.0); Hemoglobin 7.2 g/dL (14.0-18.0); Mean Corpuscular HGB CONC 34.6 g/dL (32.0-36.0); Mean Corpuscular Hemoglobin 29.4 pg (27.0-31.0); Mean Corpuscular Volume 84.9 fL (78.0-98.0); Platelet Count 174 thou/uL (130-400); RBC Distribution Width 13.6 % (11.5-14.5); Red Blood Cell (RBC) Count 2.44 mill/uL (4.70-6.10); White Blood Cell (WBC) Count 7.7 thou/uL (4.8-10.8)
[2018-07-16 04:08] LABS: Anion Gap 12 mmol/L (10-20); BUN (Urea Nitrogen) 27 mg/dL (8.4-25.7); Calc. Creatinine Clearance 21 mL/min (70-130); Carbon Dioxide 19 mmol/L (23-31); Chloride 112 mmol/L (98-107); Estimated GFR-MDRD 26; Glucose 73 mg/dL (83-110); Magnesium 1.9 mg/dL (1.6-2.6); Potassium 3.9 mmol/L (3.5-5.1); Sodium 139 mmol/L (136-145)
[2018-07-16] MEDS: Sodium Chloride 0.9% 1,000 ML IV SCH (06:11)
[2018-07-16] MEDS: Donepezil HCl 10 MG TAB PO SCH (09:04)
[2018-07-16] MEDS: Dronedarone HCl 400 MG TAB PO SCH ×2 (09:04→16:10)
[2018-07-16] MEDS: Lisinopril 20 MG TAB PO SCH (09:04)
[2018-07-16] MEDS: Potassium Chloride 10 MEQ TAB PO SCH (09:05)
[2018-07-16] MEDS: Cyanocobalamin (Vitamin B-12) 1,000 MCG TAB PO SCH (09:05)
[2018-07-16] MEDS: hydrALAZINE 25 MG TAB PO SCH ×3 (09:05→21:20)
[2018-07-16] MEDS: Metoprolol Tartrate 50 MG TAB PO SCH ×2 (09:05→21:20)
[2018-07-16] MEDS: Docusate 100 MG CAP PO SCH ×2 (09:05→21:20)
--- NOTE | 2018-07-16 10:34 | PRG ---
DATE OF SERVICE: 07/16/2018 SERVICE: Pulmonary Medicine INTERVAL HISTORY: The patient is doing fine from a respiratory standpoint. He denies any current ch est pain, nausea, vomiting, fevers or chills. He actually had a good night sleep last night and this morning, he is alert and cooperative. Otherwise, there is no interval change to his condition. His hemoglobin is essentially stable. PHYSICAL EXAMINATION: VITAL SIGNS: Afebrile, pulse 74, blood pressure 149/47, respirations 18, saturation 100% on room air . GENERAL: The patient is awake, alert, in no apparent distress. LUNGS: Excellent air entry. There is no prolonged expiratory phase, wheezing, rhonchi or crackles. HEART: Normal rate, regular. ABDOMEN: Soft, nontender, nondistended. Bowel sounds positive. MUSCULOSKELETAL: No cyanosis or clubbing. There is no pitting in the bilateral lower extremities. NEUROLOGIC: Grossly nonfocal. GENITOURINARY: Harrison catheter in place. LABORATORY DATA: WBC 7.7, hemoglobin 7.2, platelets 174,000. INR 1.1. Creatinine 2.39 and down kaylynn nding. BUN 27. Bicarbonate 19, chloride 112. Basic metabolic profile is otherwise unremarkable. M agnesium 1.9 and roughly stable. ASSESSMENT: 1. Transition cell carcinoma. 2. Acute blood loss anemia secondary to hematuria. 3. Metabolic encephalopathy. 4. Alzheimer's disease, advanced. 5. Acute kidney injury, improving. DISCUSSION AND PLAN: The patient is stable for transition out of the IMCU to the medical or telemetr y unit. Pulmonary Critical Care will continue to follow along if he remains in this location. Once he lands on the floor, he will have no further requirements for Critical Care opinion, and I will sig n off. Please call with additional questions or concerns moving forward.
[2018-07-16] MEDS: Sodium Chloride 0.45% 1,000 ML IV SCH (10:35)
[2018-07-16] MEDS: HYDROcodone/Acetaminophen 5/325 mg Tablet PO PRN (10:37)
--- NOTE | 2018-07-16 12:32 | PDOC.PN ---
- Subjective Encounter Start Date: 07/16/18 Encounter Start Time: 12:30 follow up for dementia, gross hematuria, acute blood loss anemia Seen by urology yesterday, recommendations reviewed pleasantly demented, no f/c, no - Objective Resuscitation Status: Resuscitation Status DNR:Do Not Resuscitate MAR Reviewed: Yes Vital Signs & Weight: Vital Signs (12 hours) Temp Pulse Resp BP BP Pulse Ox 07/16/18 11:37 98.2 F 84 19 129/46 L 100 07/16/18 09:05 74 149/47 H 07/16/18 09:04 149/47 H 07/16/18 08:12 98.0 F 74 18 100 07/16/18 07:50 98.0 F 73 18 163/53 H 100 07/16/18 04:00 97.2 F L 70 22 H 110/41 L 99 Weight Weight 149 lb 7 oz I&O: 07/15/18 07/16/18 07/17/18 06:59 06:59 06:59 Intake Total 1677 1618 Output Total 9505 1650 Balance -248 -32 Result Diagrams: 07/16/18 03:33 07/16/18 03:33 Phys Exam - Physical Examination Constitutional: NAD HEENT: PERRLA, moist MMs, sclera anicteric, oral pharynx no lesions Neck: no nodes, no JVD, supple, full ROM Respiratory: no wheezing, no rales, no rhonchi, clear to auscultation bilateral Cardiovascular: RRR, no significant murmur, no rub Gastrointestinal: soft, non-tender, no distention, positive bowel sounds Musculoskeletal: pulses present, edema present Neurological: non-focal, normal sensation, moves all 4 limbs Lymphatic: no nodes Psychiatric: normal affect, A&O x 3 Skin: no rash, normal turgor, cap refill <2 seconds Dx/Plan (1) TABITHA (acute kidney injury) Code(s): N17.9 - ACUTE KIDNEY FAILURE, UNSPECIFIED Status: Resolved (2) Acute blood loss anemia Code(s): D62 - ACUTE POSTHEMORRHAGIC ANEMIA Status: Acute (3) Bladder cancer Status: Chronic Qualifiers: Bladder location: unspecified site Qualified Code(s): C67.9 - Malignant neoplasm of bladder, unspecified (4) Hematuria Code(s): R31.9 - HEMATURIA, UNSPECIFIED Status: Acute Qualifiers: Hematuria type: gross Qualified Code(s): R31.0 - Gross hematuria Comment: per urology (5) Dementia Code(s): F03.90 - UNSPECIFIED DEMENTIA WITHOUT BEHAVIORAL DISTURBANCE Status: Chronic Qualifiers: Dementia type: unspecified type Dementia behavioral disturbance: without behavioral disturbance Qualified Code(s): F03.90 - Unspecified dementia without behavioral disturbance - Plan cont current plan of care, continue antibiotics, PT/OT, social worker delinquency prevention * .
[2018-07-16] MEDS: Famotidine 20 MG TAB PO SCH (21:20)
[2018-07-16] MEDS: Atorvastatin Calcium 10 MG TAB PO SCH (21:20)
[2018-07-16] MEDS: diphenhydrAMINE 25 MG CAP PO PRN (21:21)
[2018-07-17] MEDS: Sodium Chloride 0.45% 1,000 ML IV SCH (09:18)
[2018-07-17] MEDS: hydrALAZINE 25 MG TAB PO SCH ×3 (09:19→21:28)
[2018-07-17] MEDS: Lisinopril 20 MG TAB PO SCH (09:19)
[2018-07-17] MEDS: Donepezil HCl 10 MG TAB PO SCH (09:19)
[2018-07-17] MEDS: Potassium Chloride 10 MEQ TAB PO SCH (09:19)
[2018-07-17] MEDS: Cyanocobalamin (Vitamin B-12) 1,000 MCG TAB PO SCH (09:19)
[2018-07-17] MEDS: Metoprolol Tartrate 50 MG TAB PO SCH ×2 (09:19→21:29)
[2018-07-17] MEDS: Dronedarone HCl 400 MG TAB PO SCH ×2 (09:20→18:11)
[2018-07-17] MEDS: Docusate 100 MG CAP PO SCH ×2 (09:20→21:28)
--- NOTE | 2018-07-17 11:25 | PRG ---
DATE OF SERVICE: 07/17/2018 SERVICE: Pulmonary Medicine INTERVAL HISTORY: The patient is doing fine from a respiratory standpoint. His urine output actuall y turned bloody again. He denies any chest pain, nausea, vomiting, fever, chills, and currently he i s actually pretty good state of health and mentation morales. PHYSICAL EXAMINATION: HEENT: Normocephalic, atraumatic. Sclerae are white, conjunctivae pink. Oral mucosa is moist witho ut lesions. LUNGS: Decent air entry. There is no prolonged expiratory phase or wheezing appreciated. HEART: Normal rate, regular. ABDOMEN: Soft, nontender, nondistended. Bowel sounds are positive. MUSCULOSKELETAL: No cyanosis or clubbing. There is no pitting in the bilateral lower extremities. NEUROLOGIC: Grossly nonfocal. GENITOURINARY: Harrison catheter in place. LABORATORY: Hemoglobin 7.2. This was yesterday. We do not have a repeat value. ASSESSMENT: 1. Transition cell carcinoma. 2. Acute blood loss anemia secondary to hematuria. 3. Alzheimer disease, advanced. 4. Acute kidney injury. DISCUSSION AND PLAN: We will repeat laboratories tomorrow. The patient will likely require CBI once again. I will leave this to Urology to determine. Supportive care will be continued. From my pers pective, if he clears easily this time around, he can still be transitioned out of the IMCU to the te lemetry unit. Pulmonary will continue to follow in this location, but when he arrives on the floor, I will sign off.
[2018-07-17] MEDS ORDERED: Ziprasidone 20 MG VIAL IM SCH (15:30)
--- NOTE | 2018-07-17 15:30 | PDOC.PN ---
- Subjective Encounter Start Date: 07/17/18 Encounter Start Time: 11:30 follow up for dementia, acute metabolic encephalopathy, post bladder surgery bladder hemorrhage. CBI stopped, urine improve,d but today more blood and clots. Dr Green manually removed clots adn restarted CBI No F/C, no n/V/d/C, no acute events ROS not obtainable due to dementia - Objective Resuscitation Status: Resuscitation Status DNR:Do Not Resuscitate MAR Reviewed: Yes Vital Signs & Weight: Vital Signs (12 hours) Temp Pulse Resp BP BP Pulse Ox 07/17/18 15:06 70 07/17/18 11:10 98.1 F 70 17 133/56 L 100 07/17/18 09:19 79 127/67 07/17/18 07:48 98.6 F 79 16 100 07/17/18 07:26 98.6 F 79 16 149/52 H 100 07/17/18 03:59 99.4 F 70 16 128/50 L 100 Weight Weight 149 lb 7 oz I&O: 07/16/18 07/17/18 07/18/18 06:59 06:59 06:59 Intake Total 1618 2052 Output Total 1650 825 Balance -32 1227 Result Diagrams: 07/16/18 03:33 07/16/18 03:33 Phys Exam - Physical Examination Constitutional: NAD HEENT: PERRLA, moist MMs, sclera anicteric, oral pharynx no lesions Neck: no nodes, no JVD, supple, full ROM Respiratory: no wheezing, no rales, no rhonchi, clear to auscultation bilateral Cardiovascular: RRR, no rub Gastrointestinal: soft, non-tender, no distention, positive bowel sounds Musculoskeletal: no edema Neurological: non-focal, moves all 4 limbs Lymphatic: no nodes Psychiatric: normal affect Deviation from normal: alert, oriented x 1 Skin: no rash, normal turgor, cap refill <2 seconds Dx/Plan (1) TABITHA (acute kidney injury) Code(s): N17.9 - ACUTE KIDNEY FAILURE, UNSPECIFIED Status: Resolved (2) Acute blood loss anemia Code(s): D62 - ACUTE POSTHEMORRHAGIC ANEMIA Status: Acute (3) Bladder cancer Status: Chronic Qualifiers: Bladder location: unspecified site Qualified Code(s): C67.9 - Malignant neoplasm of bladder, unspecified (4) Hematuria Code(s): R31.9 - HEMATURIA, UNSPECIFIED Status: Acute Qualifiers: Hematuria type: gross Qualified Code(s): R31.0 - Gross hematuria Comment: per urology (5) Dementia Code(s): F03.90 - UNSPECIFIED DEMENTIA WITHOUT BEHAVIORAL DISTURBANCE Status: Chronic Qualifiers: Dementia type: unspecified type Dementia behavioral disturbance: without behavioral disturbance Qualified Code(s): F03.90 - Unspecified dementia without behavioral disturbance - Plan cont current plan of care, PT/OT, out of bed/ambulate * . watch H/H, labs ordered
[2018-07-17] MEDS: Atorvastatin Calcium 10 MG TAB PO SCH (21:28)
[2018-07-17] MEDS: Famotidine 20 MG TAB PO SCH (21:28)
[2018-07-18 05:40] LABS: #Basophils 0.1 thou/uL (0.0-0.2); #Eosinphils 0.1 thou/uL (0.0-0.7); #Lymphocytes 2.3 thou/uL (1.20-3.40); #Monocytes 1.1 thou/uL (0.11-0.59); #Neutrophils 7.6 thou/uL (1.40-6.50); %Basophils 0.6 % (0.0-1.0); %Eosinophils 0.7 % (0.0-10.0); %Lymphocytes 20.3 % (21.0-51.0); %Monocytes 9.6 % (0.0-10.0); %Neutrophils 68.7 % (42.0-75.0); Hemoglobin 7.5 g/dL (14.0-18.0); Mean Corpuscular HGB CONC 34.2 g/dL (32.0-36.0); Mean Corpuscular Hemoglobin 29.5 pg (27.0-31.0); Mean Corpuscular Volume 86.1 fL (78.0-98.0); Platelet Count 242 thou/uL (130-400); RBC Distribution Width 13.7 % (11.5-14.5); Red Blood Cell (RBC) Count 2.55 mill/uL (4.70-6.10); White Blood Cell (WBC) Count 11.1 thou/uL (4.8-10.8)
[2018-07-18] MEDS: Sodium Chloride 0.45% 1,000 ML IV SCH ×2 (05:45→23:38)
[2018-07-18 05:57] LABS: Anion Gap 13 mmol/L (10-20); BUN (Urea Nitrogen) 23 mg/dL (8.4-25.7); Calc. Creatinine Clearance 25 mL/min (70-130); Calcium 8.1 mg/dL (7.8-10.44); Carbon Dioxide 17 mmol/L (23-31); Chloride 109 mmol/L (98-107); Estimated GFR-MDRD 32; Glucose 86 mg/dL (83-110); Magnesium 1.7 mg/dL (1.6-2.6); Potassium 3.7 mmol/L (3.5-5.1); Sodium 135 mmol/L (136-145)
[2018-07-18] MEDS: Docusate 100 MG CAP PO SCH ×2 (09:31→21:29)
[2018-07-18] MEDS: Metoprolol Tartrate 50 MG TAB PO SCH ×2 (09:31→21:29)
[2018-07-18] MEDS: Donepezil HCl 10 MG TAB PO SCH (09:31)
[2018-07-18] MEDS: Dronedarone HCl 400 MG TAB PO SCH ×2 (09:31→16:20)
[2018-07-18] MEDS: Lisinopril 20 MG TAB PO SCH (09:32)
[2018-07-18] MEDS: Cyanocobalamin (Vitamin B-12) 1,000 MCG TAB PO SCH (09:32)
[2018-07-18] MEDS: hydrALAZINE 25 MG TAB PO SCH ×3 (09:32→21:28)
[2018-07-18] MEDS: Potassium Chloride 10 MEQ TAB PO SCH (09:32)
--- NOTE | 2018-07-18 15:55 | PRG ---
DATE OF SERVICE: 07/18/2018 SERVICE: Pulmonary Medicine. INTERVAL HISTORY: The patient continues to have a little hematuria. He is back on continuous bladde r irrigation. I find him pleasantly confused at this point. I believe, he thinks he is in a restaur ant currently. PHYSICAL EXAMINATION: VITAL SIGNS: Afebrile, pulse 93, blood pressure 156/60, respirations 23, saturation 100% on room air . GENERAL: The patient is awake, alert, no apparent distress. LUNGS: Excellent air entry with no prolonged expiratory phase, wheezing, rhonchi, or crackles presen t. HEART: Normal rate, regular. ABDOMEN: Soft, nontender, nondistended. Bowel sounds are positive. MUSCULOSKELETAL: No cyanosis or clubbing. There is no pitting in the bilateral lower extremities. NEUROLOGIC: Grossly nonfocal. LABORATORY DATA: WBC 11.1, hemoglobin 7.5, platelets 242,000. Neutrophil count is normal. INR 1.1. Creatinine is down trending to 1.96. Basic metabolic profile is otherwise unremarkable with bicarb levi of 17 and a normal anion gap. Magnesium 1.7. ASSESSMENT: 1. Acute blood loss anemia. 2. Hematuria. 3. Bladder cancer, status post recent surgery. 4. Alzheimer's disease, advanced. 5. Acute kidney injury, improving. DISCUSSION AND PLAN: At this point, the patient's nursing requirements have improved fairly dramatic ally. We are not having to frequently irrigate manually in order to remove clots. He is not nearly as combative as he was on presentation. As such, I do think it is reasonable for us to transition ou t of the ICU to the regular floor. Pulmonary will continue to follow while he remains in this locati on.
[2018-07-18] MEDS: Atorvastatin Calcium 10 MG TAB PO SCH (21:28)
[2018-07-18] MEDS: Famotidine 20 MG TAB PO SCH (21:29)
[2018-07-19 05:11] LABS: #Eosinphils 0.1 thou/uL (0.0-0.7); #Lymphocytes 1.4 thou/uL (1.20-3.40); #Monocytes 0.9 thou/uL (0.11-0.59); #Neutrophils 8.4 thou/uL (1.40-6.50); %Basophils 0.5 % (0.0-1.0); %Eosinophils 0.6 % (0.0-10.0); %Lymphocytes 12.7 % (21.0-51.0); %Monocytes 8.7 % (0.0-10.0); %Neutrophils 77.5 % (42.0-75.0); Hemoglobin 7.4 g/dL (14.0-18.0); Mean Corpuscular HGB CONC 34.4 g/dL (32.0-36.0); Mean Corpuscular Hemoglobin 29.4 pg (27.0-31.0); Mean Corpuscular Volume 85.4 fL (78.0-98.0); Mean Platelet Volume 6.9 fL (7.4-10.4); Platelet Count 259 thou/uL (130-400); RBC Distribution Width 13.7 % (11.5-14.5); Red Blood Cell (RBC) Count 2.51 mill/uL (4.70-6.10); White Blood Cell (WBC) Count 10.8 thou/uL (4.8-10.8)
[2018-07-19 05:26] LABS: Anion Gap 18 mmol/L (10-20); BUN (Urea Nitrogen) 26 mg/dL (8.4-25.7); Calc. Creatinine Clearance 26 mL/min (70-130); Calcium 8.2 mg/dL (7.8-10.44); Carbon Dioxide 14 mmol/L (23-31); Chloride 109 mmol/L (98-107); Estimated GFR-MDRD 34; Glucose 67 mg/dL (83-110); Magnesium 1.5 mg/dL (1.6-2.6); Potassium 4.1 mmol/L (3.5-5.1); Sodium 137 mmol/L (136-145)
[2018-07-19] MEDS ORDERED: Magnesium Sulfate 2 GM in Sodium Chloride 0.9% 100 ML IVPB SCH (08:45)
[2018-07-19] MEDS: Donepezil HCl 10 MG TAB PO SCH (08:55)
[2018-07-19] MEDS: Lisinopril 20 MG TAB PO SCH (08:55)
[2018-07-19] MEDS: Cyanocobalamin (Vitamin B-12) 1,000 MCG TAB PO SCH (08:55)
[2018-07-19] MEDS: Docusate 100 MG CAP PO SCH ×2 (08:56→20:44)
[2018-07-19] MEDS: Potassium Chloride 10 MEQ TAB PO SCH (08:56)
[2018-07-19] MEDS: hydrALAZINE 25 MG TAB PO SCH ×3 (08:56→20:44)
[2018-07-19] MEDS: Dronedarone HCl 400 MG TAB PO SCH ×2 (08:56→17:00)
[2018-07-19] MEDS: Metoprolol Tartrate 50 MG TAB PO SCH ×2 (08:57→20:44)
[2018-07-19] MEDS: Hyoscyamine Sulfate SL 0.125 mg Tablet SL PRN (09:59)
[2018-07-19] MEDS ORDERED: Ondansetron HCl/PF 4 MG/2 ML Vial SLOW IVP PRN (13:44)
--- NOTE | 2018-07-19 15:49 | PDOC.PN ---
- Subjective Encounter Start Date: 07/18/18 Encounter Start Time: 10:25 pt demented. oriente to person only. CBI restarted, awaiting urology note for today no F/c, no N/V/d/C, no CP ROs not obtainable due to dementia - Objective Resuscitation Status: Resuscitation Status DNR:Do Not Resuscitate MAR Reviewed: Yes Vital Signs & Weight: Vital Signs (12 hours) Temp Pulse Resp BP BP BP Pulse Ox 07/19/18 15:31 76 07/19/18 11:06 98.5 F 76 16 119/61 97 07/19/18 09:03 97.9 F 74 18 98 07/19/18 08:56 74 147/62 H 07/19/18 08:55 147/62 H 07/19/18 07:57 97.9 F 74 18 147/62 H 98 07/19/18 04:00 97.5 F L 89 20 164/77 H 94 L Weight Weight 147 lb 6 oz I&O: 07/18/18 07/19/18 07/20/18 06:59 06:59 06:59 Intake Total 1549 4055 Output Total 1700 3700 Balance -151 355 Result Diagrams: 07/19/18 04:54 07/19/18 04:54 Phys Exam - Physical Examination Constitutional: NAD HEENT: PERRLA, moist MMs, sclera anicteric, oral pharynx no lesions Neck: no nodes, no JVD, supple, full ROM Respiratory: no wheezing, no rales, no rhonchi, clear to auscultation bilateral Cardiovascular: RRR, no significant murmur, no rub Gastrointestinal: soft, non-tender, no distention, positive bowel sounds Musculoskeletal: no edema Neurological: moves all 4 limbs Lymphatic: no nodes Psychiatric: normal affect Skin: no rash, normal turgor, cap refill <2 seconds Dx/Plan (1) TABITHA (acute kidney injury) Code(s): N17.9 - ACUTE KIDNEY FAILURE, UNSPECIFIED Status: Resolved (2) Acute blood loss anemia Code(s): D62 - ACUTE POSTHEMORRHAGIC ANEMIA Status: Acute (3) Bladder cancer Status: Chronic Qualifiers: Bladder location: unspecified site Qualified Code(s): C67.9 - Malignant neoplasm of bladder, unspecified (4) Hematuria Code(s): R31.9 - HEMATURIA, UNSPECIFIED Status: Acute Qualifiers: Hematuria type: gross Qualified Code(s): R31.0 - Gross hematuria Comment: per urology (5) Dementia Code(s): F03.90 - UNSPECIFIED DEMENTIA WITHOUT BEHAVIORAL DISTURBANCE Status: Chronic Qualifiers: Dementia type: unspecified type Dementia behavioral disturbance: without behavioral disturbance Qualified Code(s): F03.90 - Unspecified dementia without behavioral disturbance - Plan cont current plan of care, martinez catheter, continue antibiotics, aids social worker * .
--- NOTE | 2018-07-19 15:51 | PDOC.PN ---
- Subjective Encounter Start Date: 07/19/18 Encounter Start Time: 10:55 -: non-verbal sleepign soundly, no changes, urine less bloody, urology planning to keep martinez inthorugh the weekend Son and daughter at bedside, updated to plans and condiiton No F/C, no n/V/D/C ROS not obtainable due to dementia - Objective Resuscitation Status: Resuscitation Status DNR:Do Not Resuscitate MAR Reviewed: Yes Vital Signs & Weight: Vital Signs (12 hours) Temp Pulse Resp BP BP BP Pulse Ox 07/19/18 15:31 76 07/19/18 11:06 98.5 F 76 16 119/61 97 07/19/18 09:03 97.9 F 74 18 98 07/19/18 08:56 74 147/62 H 07/19/18 08:55 147/62 H 07/19/18 07:57 97.9 F 74 18 147/62 H 98 07/19/18 04:00 97.5 F L 89 20 164/77 H 94 L Weight Weight 147 lb 6 oz I&O: 07/18/18 07/19/18 07/20/18 06:59 06:59 06:59 Intake Total 1549 4055 Output Total 1700 3700 Balance -151 355 Result Diagrams: 07/19/18 04:54 07/19/18 04:54 Phys Exam - Physical Examination Constitutional: NAD HEENT: PERRLA, moist MMs, sclera anicteric, oral pharynx no lesions Neck: no nodes, no JVD, supple, full ROM Respiratory: no wheezing, no rales, no rhonchi, clear to auscultation bilateral Cardiovascular: RRR, no significant murmur, no rub Gastrointestinal: soft, non-tender, no distention, positive bowel sounds Musculoskeletal: no edema Neurological: non-focal, moves all 4 limbs Lymphatic: no nodes Psychiatric: normal affect Skin: no rash, normal turgor, cap refill <2 seconds Dx/Plan (1) TABITHA (acute kidney injury) Code(s): N17.9 - ACUTE KIDNEY FAILURE, UNSPECIFIED Status: Resolved (2) Acute blood loss anemia Code(s): D62 - ACUTE POSTHEMORRHAGIC ANEMIA Status: Acute (3) Bladder cancer Status: Chronic Qualifiers: Bladder location: unspecified site Qualified Code(s): C67.9 - Malignant neoplasm of bladder, unspecified (4) Hematuria Code(s): R31.9 - HEMATURIA, UNSPECIFIED Status: Acute Qualifiers: Hematuria type: gross Qualified Code(s): R31.0 - Gross hematuria Comment: per urology (5) Dementia Code(s): F03.90 - UNSPECIFIED DEMENTIA WITHOUT BEHAVIORAL DISTURBANCE Status: Chronic Qualifiers: Dementia type: unspecified type Dementia behavioral disturbance: without behavioral disturbance Qualified Code(s): F03.90 - Unspecified dementia without behavioral disturbance Comment: schedule seroquel 50 HS - Plan cont current plan of care, plan discussed w/ family, continue antibiotics, PT/OT , older adult social work specialist * . plan on keeping thorugh weekend. follow up on urology recommendations
[2018-07-19] MEDS: Sodium Chloride 0.45% 1,000 ML IV SCH (20:44)
[2018-07-19] MEDS: Atorvastatin Calcium 10 MG TAB PO SCH (20:44)
[2018-07-19] MEDS: Famotidine 20 MG TAB PO SCH (20:45)
[2018-07-20 05:15] LABS: #Basophils 0.1 thou/uL (0.0-0.2); #Eosinphils 0.2 thou/uL (0.0-0.7); #Lymphocytes 1.2 thou/uL (1.20-3.40); #Monocytes 0.8 thou/uL (0.11-0.59); #Neutrophils 6.9 thou/uL (1.40-6.50); %Basophils 0.7 % (0.0-1.0); %Eosinophils 2.7 % (0.0-10.0); %Lymphocytes 12.8 % (21.0-51.0); %Neutrophils 74.8 % (42.0-75.0); Mean Corpuscular HGB CONC 34.9 g/dL (32.0-36.0); Mean Corpuscular Hemoglobin 29.9 pg (27.0-31.0); Mean Corpuscular Volume 85.8 fL (78.0-98.0); Platelet Count 222 thou/uL (130-400); RBC Distribution Width 13.7 % (11.5-14.5); Red Blood Cell (RBC) Count 2.32 mill/uL (4.70-6.10); White Blood Cell (WBC) Count 9.2 thou/uL (4.8-10.8)
[2018-07-20 05:32] LABS: Anion Gap 10 mmol/L (10-20); BUN (Urea Nitrogen) 28 mg/dL (8.4-25.7); Calc. Creatinine Clearance 23 mL/min (70-130); Calcium 7.7 mg/dL (7.8-10.44); Carbon Dioxide 19 mmol/L (23-31); Chloride 109 mmol/L (98-107); Estimated GFR-MDRD 31; Glucose 75 mg/dL (83-110); Potassium 3.6 mmol/L (3.5-5.1); Sodium 134 mmol/L (136-145)
[2018-07-20] MEDS: Metoprolol Tartrate 50 MG TAB PO SCH ×2 (09:16→20:43)
[2018-07-20] MEDS: Docusate 100 MG CAP PO SCH ×2 (09:16→20:43)
[2018-07-20] MEDS: Donepezil HCl 10 MG TAB PO SCH (09:16)
[2018-07-20] MEDS: Dronedarone HCl 400 MG TAB PO SCH ×2 (09:16→17:03)
[2018-07-20] MEDS: Lisinopril 20 MG TAB PO SCH (09:16)
[2018-07-20] MEDS: hydrALAZINE 25 MG TAB PO SCH ×3 (09:16→20:43)
[2018-07-20] MEDS: Potassium Chloride 10 MEQ TAB PO SCH (09:16)
[2018-07-20] MEDS: Cyanocobalamin (Vitamin B-12) 1,000 MCG TAB PO SCH (09:17)
--- NOTE | 2018-07-20 13:38 | PDOC.PN ---
- Subjective Encounter Start Date: 07/20/18 Encounter Start Time: 13:37 Having a very good day per daughter and . No restraints and he is tolerating the Harrison well for now. - Objective Resuscitation Status: Resuscitation Status DNR:Do Not Resuscitate Vital Signs & Weight: Vital Signs (12 hours) Temp Pulse Resp BP BP Pulse Ox 07/20/18 11:44 98.6 F 69 18 173/67 H 94 L 07/20/18 09:22 98.4 F 70 18 94 L 07/20/18 09:16 70 131/70 07/20/18 08:00 98.4 F 70 18 131/70 94 L 07/20/18 04:28 98.1 F 74 16 136/66 96 Weight Weight 147 lb 6 oz I&O: 07/19/18 07/20/18 07/21/18 06:59 06:59 06:59 Intake Total 4055 1540 Output Total 3700 1175 Balance 355 365 Result Diagrams: 07/20/18 04:31 07/20/18 04:31 Phys Exam - Physical Examination Constitutional: NAD Awake and alert. Respiratory: no wheezing, no rales, no rhonchi, clear to auscultation bilateral Cardiovascular: RRR, no significant murmur, no rub Gastrointestinal: soft, non-tender, no distention, positive bowel sounds Some edema of the LUE (IV on that side), but family reports it is improved. Pleasantly confused. Dx/Plan (1) Acute blood loss anemia Code(s): D62 - ACUTE POSTHEMORRHAGIC ANEMIA Status: Acute (2) Hematuria Code(s): R31.9 - HEMATURIA, UNSPECIFIED Status: Acute Qualifiers: Hematuria type: gross Qualified Code(s): R31.0 - Gross hematuria Comment: per urology (3) Bladder cancer Status: Chronic Qualifiers: Bladder location: unspecified site Qualified Code(s): C67.9 - Malignant neoplasm of bladder, unspecified (4) Dementia Code(s): F03.90 - UNSPECIFIED DEMENTIA WITHOUT BEHAVIORAL DISTURBANCE Status: Chronic Qualifiers: Dementia type: unspecified type Dementia behavioral disturbance: without behavioral disturbance Qualified Code(s): F03.90 - Unspecified dementia without behavioral disturbance Comment: schedule seroquel 50 HS (5) TABITHA (acute kidney injury) Code(s): N17.9 - ACUTE KIDNEY FAILURE, UNSPECIFIED Status: Resolved (6) Atrial fibrillation Code(s): I48.91 - UNSPECIFIED ATRIAL FIBRILLATION Status: Acute (7) CAD (coronary artery disease) Code(s): I25.10 - ATHSCL HEART DISEASE OF [place] CORONARY ARTERY W/O ANG PCTRS Status: Acute - Plan * Maintaining the Harrison through the weekend. Hope to get it out on Sunday.
[2018-07-20] MEDS: Sodium Chloride 0.45% 1,000 ML IV SCH (15:14)
[2018-07-20] MEDS: Atorvastatin Calcium 10 MG TAB PO SCH (20:43)
--- NOTE | 2018-07-20 20:52 | CON ---
DATE OF CONSULTATION: 07/20/2018 REASON FOR CONSULTATION: Dysphagia. HISTORY OF PRESENT ILLNESS: Mr. Andrews has been here for 7 days now secondary to anemia and blood loss from his bladder. He has a known bladder cancer that was initially treated with BCG instillatio n, but this is no longer working and presently, he has had no treatment for over a year. The patient also has dementia and the family has decided not to pursue further treatment. Although he is alert and awake, he does not have any recollection for anything and has poor memory. He is not able to rel ate any history. The daughter at the bedside states he has had problems with dysphagia for several y ears. A couple of times in a month, he will have food hanging up and he will either pass down or he will throw it back up. He has had issue mainly with dry meat such as white meats and breads. This m orning while eating, he had a little bit of time food seemed to hang in his chest, he was mildly unco mfortable, and he threw back up. The patient and both note this happens a couple times in a sun and other times, he can eat everything with no problems. He is not able to add anything to his sy mptomatology. They do note that several years ago, he had an upper endoscopy at this facility for a bolus obstruction. Reviewing the records that date back to 2013, I see no recollection of this, but they have come here for many years. They think it was Dr. Anderson in fact who did that. They did not recall if he had a stricture. Reviewing the imaging studies, I see no findings of esophagram. A t this point, the family does not want to really intervene in any way. PAST MEDICAL HISTORY: 1. Bladder cancer, not being treated, now admission with bladder bleeding requiring transfusion. 2. Atrial fibrillation. 3. Coronary artery disease. 4. Hypertension. 5. Hyperlipidemia. 6. Previous vascular disease with carotid endarterectomy. 7. Significant dementia. PAST SURGICAL HISTORY: Include skin cancer, sebaceous cyst, prostate biopsy, tonsillectomy, carotid endarterectomy, and what family describes as upper endoscopy at least once. MEDICATIONS AT HOME: Cholecalciferol, hydroxyzine, simvastatin, potassium chloride, metoprolol tartr ate, lisinopril, dronedarone, donepezil, B12, aspirin. PRESENT MEDICATIONS HERE: Tylenol, [place], Lipitor, Dulcolax, vitamin, Benadryl, docusate, Aricept, M ultaq, Pepcid, , Levsin, lisinopril, metoprolol, Zofran, oxybutynin, Seroquel, Ultram. PHYSICAL EXAMINATION: GENERAL: The patient is pleasant. He is pleasantly demented. He does not know where he is. He rec ognizes his family members, but does not remember the events of earlier today. VITAL SIGNS: Temperature is 98, pulse 69, blood pressure 173/67. LUNGS: Clear. Voice is clear. CHEST: Nontender. ABDOMEN: Soft, nontender. No bloating. LABORATORY DATA: Hemoglobin 7, white count 9, platelet count 222. Hemoglobin has been stable for se veral days. INR 1.1 on 07/12. Sodium 136, potassium 3.6, BUN and creatinine are 28 and 2.06. ASSESSMENT: Intermittent dysphagia for several years, few times per month. Sometimes he has bolus o bstruction, regurgitates, other times it passes. There is some history of previous bolus obstruction removal with EGD. The patient's family thinks it is at this hospital, but I can find no records of that. Likely, he has motility disorder, Schatzki ring, may could have a stricture. This could be re flux related. It seems to have been nonprogressive over time. In light of his advanced bladder canc er and dementia, the family does not want to proceed with invasive procedures. RECOMMENDATIONS: 1. I have put him on a soft mechanical diet. Ground meat should be fine. I have put him on a PPI i n case if this is reflux. He has been reclining in bed here. If symptoms persist, we could consider an upper GI with a barium tablet and if there are some significant stricturing, an upper endoscopy; but at this time, the patient's family does really not want to proceed with anything invasive in ligh t of his other medical problems, which sounds reasonable. We will follow from a distance. If he has repetitive problems and he is going to be here next week to get the upper GI and if the family wants to intervene depending on those findings we can. Otherwise, we will only intervene if he has a bolus obstruction. To help prevent that, he should eat while sitting up or out of bed, and he shou ld be on a soft diet. 2. With regards to his dementia, he should be on a bowel regimen.
[2018-07-21 04:40] LABS: #Lymphocytes 1.2 thou/uL (1.20-3.40); #Monocytes 0.8 thou/uL (0.11-0.59); #Neutrophils 6.1 thou/uL (1.40-6.50); %Basophils 0.5 % (0.0-1.0); %Eosinophils 0.3 % (0.0-10.0); %Lymphocytes 14.4 % (21.0-51.0); %Monocytes 10.3 % (0.0-10.0); %Neutrophils 74.5 % (42.0-75.0); Hemoglobin 6.2 g/dL (14.0-18.0); Mean Corpuscular HGB CONC 33.9 g/dL (32.0-36.0); Mean Corpuscular Volume 85.5 fL (78.0-98.0); Mean Platelet Volume 7.1 fL (7.4-10.4); Platelet Count 217 thou/uL (130-400); RBC Distribution Width 13.7 % (11.5-14.5); Red Blood Cell (RBC) Count 2.13 mill/uL (4.70-6.10); White Blood Cell (WBC) Count 8.1 thou/uL (4.8-10.8)
[2018-07-21 04:50] LABS: Anion Gap 12 mmol/L (10-20); BUN (Urea Nitrogen) 28 mg/dL (8.4-25.7); Calc. Creatinine Clearance 22 mL/min (70-130); Calcium 7.4 mg/dL (7.8-10.44); Carbon Dioxide 18 mmol/L (23-31); Chloride 109 mmol/L (98-107); Estimated GFR-MDRD 28; Glucose 87 mg/dL (83-110); Potassium 3.8 mmol/L (3.5-5.1); Sodium 135 mmol/L (136-145)
--- NOTE | 2018-07-21 09:11 | PDOC.PN ---
- Subjective Encounter Start Date: 07/21/18 Encounter Start Time: 09:09 Feels fine. A little upset because he does not think there is anything wrong with him. He says that he did not have any bleeding and it must be some kind of "makeup" being used to fool everyone. - Objective Resuscitation Status: Resuscitation Status DNR:Do Not Resuscitate Vital Signs & Weight: Vital Signs (12 hours) Temp Pulse Resp BP Pulse Ox 07/21/18 07:48 98.6 F 69 16 145/68 H 98 07/21/18 04:00 98.1 F 71 16 142/60 H 94 L 07/21/18 00:00 98.3 F 71 16 106/57 L 94 L Weight Weight 147 lb 6 oz I&O: 07/20/18 07/21/18 07/22/18 06:59 06:59 06:59 Intake Total 1540 1800 Output Total 1175 1170 Balance 365 630 Result Diagrams: 07/21/18 03:48 07/21/18 03:48 Phys Exam - Physical Examination Constitutional: NAD Respiratory: no wheezing, no rales, no rhonchi, clear to auscultation bilateral Cardiovascular: RRR, no significant murmur, no rub Gastrointestinal: soft, non-tender, no distention, positive bowel sounds Musculoskeletal: no edema Dx/Plan (1) Acute blood loss anemia Code(s): D62 - ACUTE POSTHEMORRHAGIC ANEMIA Status: Acute Plan: Needs blood. Called to get consent. NA. (2) Hematuria Code(s): R31.9 - HEMATURIA, UNSPECIFIED Status: Acute Qualifiers: Hematuria type: gross Qualified Code(s): R31.0 - Gross hematuria Plan: Hope to get Harrison out tomorrow. Comment: per urology (3) Bladder cancer Status: Chronic Qualifiers: Bladder location: unspecified site Qualified Code(s): C67.9 - Malignant neoplasm of bladder, unspecified (4) Dementia Code(s): F03.90 - UNSPECIFIED DEMENTIA WITHOUT BEHAVIORAL DISTURBANCE Status: Chronic Qualifiers: Dementia type: unspecified type Dementia behavioral disturbance: without behavioral disturbance Qualified Code(s): F03.90 - Unspecified dementia without behavioral disturbance Comment: schedule seroquel 50 HS (5) TABITHA (acute kidney injury) Code(s): N17.9 - ACUTE KIDNEY FAILURE, UNSPECIFIED Status: Resolved Plan: Creatinine starting to climb again. (6) Atrial fibrillation Code(s): I48.91 - UNSPECIFIED ATRIAL FIBRILLATION Status: Acute (7) CAD (coronary artery disease) Code(s): I25.10 - ATHSCL HEART DISEASE OF [place] CORONARY ARTERY W/O ANG PCTRS Status: Acute Comment: Stable. - Plan * Blood today. * Recheck hgb and creat tomorrow. * Hope to get Harrison out tomorrow. * Keep bedside sitter as he tends to try to pull out the Harrison.
[2018-07-21] MEDS: Docusate 100 MG CAP PO SCH ×2 (09:44→21:04)
[2018-07-21] MEDS: Cyanocobalamin (Vitamin B-12) 1,000 MCG TAB PO SCH (09:44)
[2018-07-21] MEDS: Dronedarone HCl 400 MG TAB PO SCH ×2 (09:44→16:30)
[2018-07-21] MEDS: Donepezil HCl 10 MG TAB PO SCH (09:45)
[2018-07-21] MEDS: hydrALAZINE 25 MG TAB PO SCH ×3 (09:45→21:04)
[2018-07-21] MEDS: Lisinopril 20 MG TAB PO SCH (09:46)
[2018-07-21] MEDS: Potassium Chloride 10 MEQ TAB PO SCH (09:46)
[2018-07-21] MEDS: Pantoprazole 40 MG VIAL IVP SCH (09:46)
[2018-07-21] MEDS: Metoprolol Tartrate 50 MG TAB PO SCH ×2 (09:46→21:04)
[2018-07-21] MEDS: Sodium Chloride 0.45% 1,000 ML IV SCH (09:54)
[2018-07-21] MEDS ORDERED: Vancomycin HCl 1 GM in Premix Bag 1 BAG IVPB SCH (13:15)
--- NOTE | 2018-07-21 14:03 | PRG ---
DATE OF SERVICE: 07/21/2018 SUBJECTIVE: Mr. Andrews states he just does not feel good today. The aide with him notes that he had no problems with swallowing his breakfast today. In talking with the nurses, he has not had any overt bleeding in his bowels. OBJECTIVE: VITAL SIGNS: Temperature is 98.6, pulse is 69, blood pressure 145/68. LUNGS: Clear. HEART: Regular rate and rhythm without clicks or murmurs. ABDOMEN: Nontender. LABORATORY STUDIES: White count is 8.1; hemoglobin 6.2, it was 7 yesterday, 7.4 the day before; platelet count 217. BUN and creatinine are 28 and 2.23, sodium 135, potassium 3.4. ASSESSMENT: 1. Bladder cancer, stopped therapy 2 yrs ago. 2. Admitted with hematuria. Hb back down below 7, nurse notes he is going to be transfused by Hospital /IM 3. Intermittent history of dysphagia with previous EGD in 2007 for bolus obstruction. Intermittently, he will have dysphagia now. The family is not interested in further workup at this time. RECOMMENDATIONS: 1. A soft mechanical diet. 2. PPI therapy. If there is desire for further evaluation, a barium swallow tablet would be reasonable, but in light of his advanced malignancy and dementia , I think treating him conservatively and symptomatically would not be unreasonable. I will sign off. If I can be of any further assistance, please do not hesitate to re-consult. [facility]
[2018-07-21] MEDS: Atorvastatin Calcium 10 MG TAB PO SCH (21:04)
[2018-07-22] MEDS: diphenhydrAMINE 25 MG CAP PO PRN (00:30)
[2018-07-22] MEDS: HYDROcodone/Acetaminophen 5/325 mg Tablet PO PRN ×2 (00:30→22:03)
[2018-07-22 05:08] LABS: #Eosinphils 0.2 thou/uL (0.0-0.7); #Lymphocytes 1.4 thou/uL (1.20-3.40); #Monocytes 0.9 thou/uL (0.11-0.59); #Neutrophils 5.6 thou/uL (1.40-6.50); %Basophils 0.6 % (0.0-1.0); %Eosinophils 2.3 % (0.0-10.0); %Lymphocytes 17.5 % (21.0-51.0); %Monocytes 11.4 % (0.0-10.0); %Neutrophils 68.1 % (42.0-75.0); Hemoglobin 7.9 g/dL (14.0-18.0); Mean Corpuscular Hemoglobin 29.2 pg (27.0-31.0); Mean Corpuscular Volume 85.9 fL (78.0-98.0); Mean Platelet Volume 7.3 fL (7.4-10.4); Platelet Count 231 thou/uL (130-400); RBC Distribution Width 13.7 % (11.5-14.5); Red Blood Cell (RBC) Count 2.69 mill/uL (4.70-6.10); White Blood Cell (WBC) Count 8.2 thou/uL (4.8-10.8)
[2018-07-22 05:21] LABS: Anion Gap 10 mmol/L (10-20); BUN (Urea Nitrogen) 21 mg/dL (8.4-25.7); Calc. Creatinine Clearance 26 mL/min (70-130); Calcium 7.6 mg/dL (7.8-10.44); Carbon Dioxide 20 mmol/L (23-31); Chloride 110 mmol/L (98-107); Estimated GFR-MDRD 35; Glucose 80 mg/dL (83-110); Potassium 3.6 mmol/L (3.5-5.1); Sodium 136 mmol/L (136-145)
[2018-07-22] MEDS ORDERED: Vancomycin HCl 1 GM in Premix Bag 1 BAG IVPB SCH (08:00)
[2018-07-22] MEDS: Potassium Chloride 10 MEQ TAB PO SCH (08:18)
[2018-07-22] MEDS: hydrALAZINE 25 MG TAB PO SCH ×3 (08:18→22:01)
[2018-07-22] MEDS: Dronedarone HCl 400 MG TAB PO SCH ×2 (08:18→17:15)
[2018-07-22] MEDS: Metoprolol Tartrate 50 MG TAB PO SCH ×2 (08:18→22:01)
[2018-07-22] MEDS: Docusate 100 MG CAP PO SCH ×2 (08:18→22:02)
[2018-07-22] MEDS: Donepezil HCl 10 MG TAB PO SCH (08:18)
[2018-07-22] MEDS: Lisinopril 20 MG TAB PO SCH (08:18)
[2018-07-22] MEDS: Pantoprazole 40 MG VIAL IVP SCH (08:19)
[2018-07-22] MEDS: Cyanocobalamin (Vitamin B-12) 1,000 MCG TAB PO SCH (08:19)
[2018-07-22] MEDS: Sodium Chloride 0.45% 1,000 ML IV SCH (10:15)
--- NOTE | 2018-07-22 14:03 | PDOC.PN ---
- Subjective Encounter Start Date: 07/22/18 Encounter Start Time: 14:02 Patient feels well today. He is happy and has no complaints. - Objective Resuscitation Status: Resuscitation Status DNR:Do Not Resuscitate Vital Signs & Weight: Vital Signs (12 hours) Temp Pulse Resp BP BP BP Pulse Ox 07/22/18 12:46 97.8 F 76 18 128/67 97 07/22/18 09:10 97.7 F 70 18 97 07/22/18 08:18 70 160/75 H 07/22/18 08:08 97.7 F 70 18 160/75 H 97 07/22/18 03:47 98.7 F 79 18 158/64 H 94 L Weight Weight 147 lb 6 oz I&O: 07/21/18 07/22/18 07/23/18 06:59 06:59 06:59 Intake Total 1800 2690 Output Total 1170 1575 Balance 630 1115 Result Diagrams: 07/22/18 03:57 07/22/18 03:57 Phys Exam - Physical Examination Constitutional: NAD Respiratory: no wheezing, no rales, no rhonchi, clear to auscultation bilateral Cardiovascular: RRR, no significant murmur, no rub Gastrointestinal: soft, non-tender, no distention, positive bowel sounds Musculoskeletal: no edema Dx/Plan (1) Acute blood loss anemia Code(s): D62 - ACUTE POSTHEMORRHAGIC ANEMIA Status: Acute (2) Hematuria Code(s): R31.9 - HEMATURIA, UNSPECIFIED Status: Acute Qualifiers: Hematuria type: gross Qualified Code(s): R31.0 - Gross hematuria Comment: per urology (3) Bladder cancer Status: Chronic Qualifiers: Bladder location: unspecified site Qualified Code(s): C67.9 - Malignant neoplasm of bladder, unspecified (4) Dementia Code(s): F03.90 - UNSPECIFIED DEMENTIA WITHOUT BEHAVIORAL DISTURBANCE Status: Chronic Qualifiers: Dementia type: unspecified type Dementia behavioral disturbance: without behavioral disturbance Qualified Code(s): F03.90 - Unspecified dementia without behavioral disturbance Comment: schedule seroquel 50 HS (5) TABITHA (acute kidney injury) Code(s): N17.9 - ACUTE KIDNEY FAILURE, UNSPECIFIED Status: Resolved (6) Atrial fibrillation Code(s): I48.91 - UNSPECIFIED ATRIAL FIBRILLATION Status: Acute (7) CAD (coronary artery disease) Code(s): I25.10 - ATHSCL HEART DISEASE OF [place] CORONARY ARTERY W/O ANG PCTRS Status: Acute Comment: Stable. (8) Methicillin resistant Staphylococcus epidermidis infection Code(s): A49.8 - OTHER BACTERIAL INFECTIONS OF UNSPECIFIED SITE; Z16.29 - RESISTANCE TO OTHER SINGLE SPECIFIED ANTIBIOTIC Status: Acute - Plan * Harrison out this morning. * On Vanc for MRSE. * Off Eliquis secondary to bleeding. Would likely rebleed if restarted. Continue to hold. * Continue beta power for rate control. * Continue Zestril for BP.
[2018-07-22] MEDS: Atorvastatin Calcium 10 MG TAB PO SCH (22:01)
[2018-07-23 05:25] LABS: Anion Gap 12 mmol/L (10-20); BUN (Urea Nitrogen) 18 mg/dL (8.4-25.7); Calc. Creatinine Clearance 28 mL/min (70-130); Carbon Dioxide 20 mmol/L (23-31); Chloride 107 mmol/L (98-107); Estimated GFR-MDRD 37; Glucose 89 mg/dL (83-110); Potassium 3.8 mmol/L (3.5-5.1); Sodium 135 mmol/L (136-145)
[2018-07-23] MEDS: Sodium Chloride 0.45% 1,000 ML IV SCH (06:03)
[2018-07-23] MEDS: Lisinopril 20 MG TAB PO SCH (08:18)
[2018-07-23] MEDS: hydrALAZINE 25 MG TAB PO SCH ×2 (08:18→15:08)
[2018-07-23] MEDS: Pantoprazole 40 MG VIAL IVP SCH (08:18)
[2018-07-23] MEDS: Donepezil HCl 10 MG TAB PO SCH (08:18)
[2018-07-23] MEDS: Cyanocobalamin (Vitamin B-12) 1,000 MCG TAB PO SCH (08:18)
[2018-07-23] MEDS: Docusate 100 MG CAP PO SCH (08:18)
[2018-07-23] MEDS: Metoprolol Tartrate 50 MG TAB PO SCH (08:18)
[2018-07-23] MEDS: Potassium Chloride 10 MEQ TAB PO SCH (08:18)
[2018-07-23] MEDS: Dronedarone HCl 400 MG TAB PO SCH ×2 (08:18→16:51)
[2018-07-23] MEDS ORDERED: Vancomycin HCl 500 MG in Sodium Chloride 0.9% 100 ML IVPB SCH (12:45)
--- NOTE | 2018-07-23 17:44 | PDOC.PN ---
- Subjective Encounter Start Date: 07/23/18 Encounter Start Time: 10:15 Happy and has no complaints. - Objective Resuscitation Status: Resuscitation Status DNR:Do Not Resuscitate Vital Signs & Weight: Vital Signs (12 hours) Temp Pulse Resp BP BP Pulse Ox 07/23/18 15:08 160/76 H 07/23/18 08:00 98.3 F 87 18 94 L 07/23/18 07:29 98.3 F 87 18 178/77 H 94 L Weight Weight 147 lb 6 oz I&O: 07/22/18 07/23/18 07/24/18 06:59 06:59 06:59 Intake Total 2690 1940 Output Total 1575 925 Balance 1115 1015 Result Diagrams: 07/22/18 03:57 07/23/18 04:43 Phys Exam - Physical Examination Constitutional: NAD Confused. Pleasant Respiratory: no wheezing, no rales, no rhonchi, clear to auscultation bilateral Cardiovascular: RRR, no significant murmur Gastrointestinal: soft, non-tender, no distention, positive bowel sounds Musculoskeletal: no edema Dx/Plan (1) Acute blood loss anemia Code(s): D62 - ACUTE POSTHEMORRHAGIC ANEMIA Status: Acute (2) Hematuria Code(s): R31.9 - HEMATURIA, UNSPECIFIED Status: Acute Qualifiers: Hematuria type: gross Qualified Code(s): R31.0 - Gross hematuria Comment: per urology (3) Bladder cancer Status: Chronic Qualifiers: Bladder location: unspecified site Qualified Code(s): C67.9 - Malignant neoplasm of bladder, unspecified (4) Dementia Code(s): F03.90 - UNSPECIFIED DEMENTIA WITHOUT BEHAVIORAL DISTURBANCE Status: Chronic Qualifiers: Dementia type: unspecified type Dementia behavioral disturbance: without behavioral disturbance Qualified Code(s): F03.90 - Unspecified dementia without behavioral disturbance Comment: schedule seroquel 50 HS (5) TABITHA (acute kidney injury) Code(s): N17.9 - ACUTE KIDNEY FAILURE, UNSPECIFIED Status: Resolved (6) Atrial fibrillation Code(s): I48.91 - UNSPECIFIED ATRIAL FIBRILLATION Status: Acute (7) CAD (coronary artery disease) Code(s): I25.10 - ATHSCL HEART DISEASE OF [place] CORONARY ARTERY W/O ANG PCTRS Status: Acute Comment: Stable. (8) Methicillin resistant Staphylococcus epidermidis infection Code(s): A49.8 - OTHER BACTERIAL INFECTIONS OF UNSPECIFIED SITE; Z16.29 - RESISTANCE TO OTHER SINGLE SPECIFIED ANTIBIOTIC Status: Acute - Plan * Harrison is out. IRWIN treated with IV Vanc. Urology recommended a couple more days of Vanc. Dementia makes his care difficult because he wants to wander and requires 24 hour sitter. Requiring additional dose of Seroquel this afternoon. If continues to be problematic, could consider po Zyvox.
[2018-07-23] MEDS ORDERED: Lorazepam 2 MG/ML VIAL ONE (18:10)
[2018-07-23] MEDS ORDERED: Lorazepam 2 MG/ML VIAL SLOW IVP SCH (18:45)
[2018-07-24] MEDS: Metoprolol Tartrate 50 MG TAB PO SCH ×3 (01:28→20:31)
[2018-07-24] MEDS: Docusate 100 MG CAP PO SCH ×3 (01:28→20:32)
[2018-07-24] MEDS: Atorvastatin Calcium 10 MG TAB PO SCH ×2 (01:28→20:32)
[2018-07-24] MEDS: hydrALAZINE 25 MG TAB PO SCH ×4 (01:28→20:32)
[2018-07-24 06:03] LABS: Anion Gap 15 mmol/L (10-20); BUN (Urea Nitrogen) 13 mg/dL (8.4-25.7); Calc. Creatinine Clearance 31 mL/min (70-130); Calcium 8.2 mg/dL (7.8-10.44); Carbon Dioxide 18 mmol/L (23-31); Chloride 109 mmol/L (98-107); Estimated GFR-MDRD 43; Glucose 70 mg/dL (83-110); Potassium 3.6 mmol/L (3.5-5.1); Sodium 138 mmol/L (136-145)
[2018-07-24] MEDS: Dronedarone HCl 400 MG TAB PO SCH ×2 (09:55→16:01)
[2018-07-24] MEDS: Sodium Chloride 0.45% 1,000 ML IV SCH ×2 (09:55→20:38)
[2018-07-24] MEDS: Donepezil HCl 10 MG TAB PO SCH (09:56)
[2018-07-24] MEDS: Cyanocobalamin (Vitamin B-12) 1,000 MCG TAB PO SCH (09:56)
[2018-07-24 12:23] VITALS: BMI 21.7
[2018-07-24] MEDS: Pantoprazole 40 MG VIAL IVP SCH (12:41)
[2018-07-24] MEDS: Potassium Chloride 10 MEQ TAB PO SCH (12:41)
[2018-07-24] MEDS: Lisinopril 20 MG TAB PO SCH (12:41)
[2018-07-24] MEDS ORDERED: Vancomycin HCl 500 MG in Sodium Chloride 0.9% 100 ML IVPB SCH (13:30)
--- NOTE | 2018-07-24 15:41 | PDOC.PN ---
- Subjective Encounter Start Date: 07/24/18 Encounter Start Time: 15:39 No complaints today. Sleeping a good deal this morning. No reported agitation. - Objective Resuscitation Status: Resuscitation Status DNR:Do Not Resuscitate Vital Signs & Weight: Vital Signs (12 hours) Temp Pulse Resp BP BP Pulse Ox 07/24/18 12:41 136/68 07/24/18 08:00 98.0 F 70 16 07/24/18 07:25 98.0 F 70 16 173/85 H 96 Weight Admit Weight 153 lb Weight 147 lb 6 oz I&O: 07/23/18 07/24/18 07/25/18 06:59 06:59 06:59 Intake Total 1940 Output Total 925 Balance 1015 Result Diagrams: 07/22/18 03:57 07/24/18 04:24 Phys Exam - Physical Examination Constitutional: NAD Respiratory: no wheezing, no rales, no rhonchi, clear to auscultation bilateral Cardiovascular: RRR, no significant murmur, no rub Gastrointestinal: soft, non-tender, no distention, positive bowel sounds Musculoskeletal: no edema Dx/Plan (1) Acute blood loss anemia Code(s): D62 - ACUTE POSTHEMORRHAGIC ANEMIA Status: Acute Comment: Improved. (2) Hematuria Code(s): R31.9 - HEMATURIA, UNSPECIFIED Status: Acute Qualifiers: Hematuria type: gross Qualified Code(s): R31.0 - Gross hematuria Comment: Resolved. Harrison out. Due to bladder ca and blood thinners. Avoid anticoagulants going forward. (3) Bladder cancer Status: Chronic Qualifiers: Bladder location: unspecified site Qualified Code(s): C67.9 - Malignant neoplasm of bladder, unspecified (4) Dementia Code(s): F03.90 - UNSPECIFIED DEMENTIA WITHOUT BEHAVIORAL DISTURBANCE Status: Chronic Qualifiers: Dementia type: unspecified type Dementia behavioral disturbance: without behavioral disturbance Qualified Code(s): F03.90 - Unspecified dementia without behavioral disturbance Comment: schedule seroquel 50 HS (5) TABITHA (acute kidney injury) Code(s): N17.9 - ACUTE KIDNEY FAILURE, UNSPECIFIED Status: Resolved Comment : Resolved (6) Atrial fibrillation Code(s): I48.91 - UNSPECIFIED ATRIAL FIBRILLATION Status: Acute Comment: Avoiding anticoagulation due to severe hematuria. (7) CAD (coronary artery disease) Code(s): I25.10 - ATHSCL HEART DISEASE OF [place] CORONARY ARTERY W/O ANG PCTRS Status: Acute Comment: Stable. (8) Methicillin resistant Staphylococcus epidermidis infection Code(s): A49.8 - OTHER BACTERIAL INFECTIONS OF UNSPECIFIED SITE; Z16.29 - RESISTANCE TO OTHER SINGLE SPECIFIED ANTIBIOTIC Status: Acute Comment: Finishing Vanc today. - Plan * OK for discharge medically. Awaiting placement process.
[2018-07-25 05:16] LABS: Anion Gap 11 mmol/L (10-20); BUN (Urea Nitrogen) 12 mg/dL (8.4-25.7); Calc. Creatinine Clearance 31 mL/min (70-130); Calcium 7.8 mg/dL (7.8-10.44); Carbon Dioxide 21 mmol/L (23-31); Chloride 109 mmol/L (98-107); Estimated GFR-MDRD 43; Glucose 82 mg/dL (83-110); Potassium 3.6 mmol/L (3.5-5.1); Sodium 137 mmol/L (136-145)
[2018-07-25] MEDS: Lisinopril 20 MG TAB PO SCH (09:54)
[2018-07-25] MEDS: Donepezil HCl 10 MG TAB PO SCH (09:54)
[2018-07-25] MEDS: Cyanocobalamin (Vitamin B-12) 1,000 MCG TAB PO SCH (09:54)
[2018-07-25] MEDS: hydrALAZINE 25 MG TAB PO SCH ×2 (09:55→15:15)
[2018-07-25] MEDS: Metoprolol Tartrate 50 MG TAB PO SCH (09:55)
[2018-07-25] MEDS: Potassium Chloride 10 MEQ TAB PO SCH (09:55)
[2018-07-25] MEDS: Dronedarone HCl 400 MG TAB PO SCH ×2 (09:55→17:18)
[2018-07-25] MEDS: Docusate 100 MG CAP PO SCH (09:56)
[2018-07-25] MEDS: Pantoprazole 40 MG VIAL IVP SCH (09:57)
--- NOTE | 2018-07-25 12:48 | DIS ---
DATE OF ADMISSION: 07/13/2018 DATE OF DISCHARGE: 07/25/2018 PRIMARY CARE PHYSICIAN: Morgan Barton MD DISCHARGE DISPOSITION: [facility] unit. PRIMARY DISCHARGE DIAGNOSES: 1. Acute on chronic kidney failure, baseline chronic kidney disease stage 3. 2. Gross hematuria, resolved. 3. Acute blood loss anemia. 4. Methicillin-resistant staphylococcus aureus, urinary tract infection, treated in hospital. SECONDARY DISCHARGE DIAGNOSES: Alzheimer's dementia, coronary artery disease, bladder cancer, chroni c atrial fibrillation, chronic kidney disease stage 3, physical deconditioning. PRIMARY PROCEDURE/OPERATION: None other than bladder irrigation. RADIOLOGICAL INVESTIGATION: Renal ultrasound was unremarkable. SIGNIFICANT LABORATORY DATA: WBC 8.2, hemoglobin 7.9, platelet 231. INR 1.1. Sodium 137, potassium 3.6, BUN 12, creatinine 1.54, calcium 7.8. LFT normal. Urine culture grew Staph epidermidis. DISCHARGE MEDICATIONS: Vitamin D3 of 1000 unit p.o. daily, vitamin B12 of 1000 mcg p.o. daily, Arice pt 10 mg p.o. daily, Multaq 400 mg p.o. b.i.d., hydralazine 25 mg p.o. t.i.d., Lisinopril 40 mg p.o. daily, Lopressor 50 mg p.o. b.i.d., Zocor 20 mg p.o. at bedtime, Ditropan 5 mg p.o. q.8 hourly, Seroq uel 50 mg p.o. at bedtime. CONTRAINDICATIONS: None. The patient is not given any blood thinner medication in view of atrial fibrillation because of hemat uria and risk of recurrent hematuria with chronic anticoagulation. CODE STATUS: DNR. This was discussed during this hospitalization. INPATIENT CONSULTANTS: Dr. Ball, urologist, was following while in hospital. Dr. Pride was fol lowing this patient while in hospital for [facility] admission, Dr. Gaines was consulted for oropharyngeal dysphagia. TEST RESULTS PENDING ON DISCHARGE: None. ALLERGIES: No known drug allergy. DISCHARGE PLAN: Post hospital, the patient is discharged to half-way home where he will follo w up with primary care physician. HOSPITAL COURSE: An 88-year-old male who was admitted by Dr. Villavicencio. Please see her H and P for [facility] er detail. On admission, the patient was having gross hematuria. He had anemia due to acute blood l oss and he had acute on chronic kidney failure. He was admitted initially to [place] [id number]. He was treate d with bladder irrigation. Urologist was consulted. The patient had a code green and subsequently code blue and that is why he required transfer and the Pulmonary Critical Care was following since then. He was stabilized, he was getting bladder irrigati on. He had blood loss anemia. He was given 2 units of blood transfusion. Urologist was also follow ing subsequently. Upon stabilization, this patient was transferred to medical floor. GI was consulted for oropharyngeal dysphagia, but patient was tolerating modified diet based on speec h therapy recommendations. His blood loss anemia was related with hematuria that was stabilized. He had acute on chronic kidney failure that was also improved with IV fluid. His urine culture grew St aph epidermidis, which was MRSE and that was treated with vancomycin while in hospital. Patient has finished complete course of vancomycin while in hospital. He was getting gentle IV fluid [facility]. He was not a good candidate for continuation of long-term anticoagulation and that is why El iquis was discontinued. Even though he has atrial fibrillation considering the risk and benefit, we added Seroquel on his regimen. The patient has physical deconditioning and that is why he was requir ing placement and with help of pillowcase cleaner, we arranged half-way home. He is medically stabl e. The patient is seen and examined at bedside today. Paper work for discharge done. Discharge med ication reconciliation done. PHYSICAL EXAMINATION: VITAL SIGNS: Currently, temperature 97.6, pulse 76, respiratory rate 16, saturation 96% on room air, blood pressure 158/55, weight 147 pounds. GENERAL: The patient is currently alert, awake, follows command. No obvious acute distress. HEAD: Normocephalic, atraumatic. EYES: Pupils round, reactive to light. Extraocular muscle intact. ENT: Oropharynx within normal limits. Moist mucous membranes, no oral lesion, no pharyngeal erythem a, no exudate. NECK: Supple, no JVD, no thyromegaly, no carotid bruit. LUNGS: Clear to auscultation without any rhonchi or rales. CARDIAC: S1, S2 appears irregular. No murmur, no gallop, no rub. ABDOMEN: Soft and benign without any tenderness. EXTREMITIES: No edema. NEUROLOGIC: Nonfocal examination. He moves all 4 limbs. Plantar bilateral flexor. I have to review old record today because today was my first day to take care of this patient before that patient was in hospital for almost 12 days. Total time spent on discharge day 32 minutes.
--- NOTE | 2018-07-25 12:48 | PDOC.PN ---
- Subjective Encounter Start Date: 07/25/18 Encounter Start Time: 09:30 -: old records requested/rev Patient seen and examined. No new complaints. No overnight events - Objective Resuscitation Status: Resuscitation Status DNR:Do Not Resuscitate MAR Reviewed: Yes Vital Signs & Weight: Vital Signs (12 hours) Temp Pulse Resp BP BP Pulse Ox 07/25/18 11:28 97.6 F 76 16 158/55 H 96 07/25/18 09:55 70 07/25/18 09:54 184/47 H 07/25/18 08:40 97.6 F 76 16 96 07/25/18 07:22 98.5 F 70 20 174/64 H 94 L Weight Admit Weight 153 lb Weight 147 lb 6 oz I&O: 07/24/18 07/25/18 07/26/18 06:59 06:59 06:59 Intake Total 600 Balance 600 Result Diagrams: 07/22/18 03:57 07/25/18 03:56 Radiology Reviewed by me: Yes Phys Exam - Physical Examination Constitutional: NAD HEENT: PERRLA, moist MMs, sclera anicteric Neck: no JVD, supple Respiratory: no wheezing, no rales, no rhonchi Cardiovascular: RRR, no significant murmur, no rub Gastrointestinal: soft, non-tender, no distention, positive bowel sounds Musculoskeletal: no edema, pulses present Neurological: moves all 4 limbs Lymphatic: no nodes Psychiatric: normal affect Skin: no rash, normal turgor Dx/Plan (1) Acute blood loss anemia Code(s): D62 - ACUTE POSTHEMORRHAGIC ANEMIA Status: Acute Comment: Improved. (2) Acute worsening of stage 3 chronic kidney disease Code(s): N18.3 - CHRONIC KIDNEY DISEASE, STAGE 3 (MODERATE) Status: Acute (3) Hematuria Code(s): R31.9 - HEMATURIA, UNSPECIFIED Status: Acute Qualifiers: Hematuria type: gross Qualified Code(s): R31.0 - Gross hematuria Comment: Resolved. Harrison out. Due to bladder ca and blood thinners. Avoid anticoagulants going forward. (4) Methicillin resistant Staphylococcus epidermidis infection Code(s): A49.8 - OTHER BACTERIAL INFECTIONS OF UNSPECIFIED SITE; Z16.29 - RESISTANCE TO OTHER SINGLE SPECIFIED ANTIBIOTIC Status: Acute Comment: (5) Atrial fibrillation Code(s): I48.91 - UNSPECIFIED ATRIAL FIBRILLATION Status: Chronic Comment: Avoiding anticoagulation due to severe hematuria. (6) Bladder cancer Status: Chronic Qualifiers: Bladder location: unspecified site Qualified Code(s): C67.9 - Malignant neoplasm of bladder, unspecified (7) CAD (coronary artery disease) Code(s): I25.10 - ATHSCL HEART DISEASE OF [place] CORONARY ARTERY W/O ANG PCTRS Status: Chronic Comment: Stable. (8) Dementia Code(s): F03.90 - UNSPECIFIED DEMENTIA WITHOUT BEHAVIORAL DISTURBANCE Status: Chronic Qualifiers: Dementia type: unspecified type Dementia behavioral disturbance: without behavioral disturbance Qualified Code(s): F03.90 - Unspecified dementia without behavioral disturbance Comment: schedule seroquel 50 HS - Plan cont current plan of care * medication reviewed as below * symptomatic treatment * see discharge mp. Review of Systems - Review of Systems ENT: negative: Ear Pain, Ear Discharge, Nose Pain, Nose Discharge, Nose Congestion, Mouth Pain, Mouth Swelling, Throat Pain, Throat Swelling, Other Respiratory: negative: Cough, Dry, Shortness of Breath, Hemoptysis, SOB with Excertion, Pleuritic Pain, Sputum, Wheezing Cardiovascular: negative: chest pain, palpitations, orthopnea, paroxysmal nocturnal dyspnea, edema, light headedness, other Gastrointestinal: negative: Nausea, Vomiting, Abdominal Pain, Diarrhea, Constipation, Melena, Hematochezia, Other Genitourinary: negative: Dysuria, Frequency, Incontinence, Hematuria, Retention , Other Musculoskeletal: negative: Neck Pain, Shoulder Pain, Arm Pain, Back Pain, Hand Pain, Leg Pain, Foot Pain, Other - Medications/Allergies Allergies/Adverse Reactions: Allergies Allergy/AdvReac Type Severity Reaction Status Date / Time No Known Allergies Allergy Verified 06/05/18 09:59 Medications: Current Medications Acetaminophen (Tylenol) 500 mg PO Q4H PRN PRN Reason: ANGEL/Fever > 101F/mild pain(1-3) Last Admin: 07/21/18 16:23 Dose: 500 mg Atorvastatin Calcium (Lipitor) 10 mg PO HS [facility] Last Admin: 07/24/18 20:32 Dose: 10 mg Bisacodyl (Dulcolax) 10 mg PO DAILYPRN PRN PRN Reason: Constipation Cyanocobalamin (Vitamin B-12) 1,000 mcg PO DAILY [facility] Last Admin: 07/25/18 09:54 Dose: 1,000 mcg Diphenhydramine HCl (Benadryl) 25 mg PO Q6H PRN PRN Reason: Itching Last Admin: 07/22/18 00:30 Dose: 25 mg Docusate Sodium (Colace) 100 mg PO BID [facility] Last Admin: 07/25/18 09:56 Dose: 100 mg Donepezil HCl (Aricept) 10 mg PO DAILY [facility] Last Admin: 07/25/18 09:54 Dose: 10 mg Dronedarone (Multaq) 400 mg PO BID-[facility] Last Admin: 07/25/18 09:55 Dose: 400 mg Hydralazine HCl (Apresoline) 25 mg PO TID [facility] Last Admin: 07/25/18 09:55 Dose: 25 mg Hyoscyamine Sulfate (Levsin Sl) 0.25 mg SL Q6H PRN PRN Reason: Bladder Spasms Last Admin: 07/19/18 09:59 Dose: 0.25 mg Sodium Chloride (1/2 Normal Saline) 1,000 mls @ 50 mls/hr IV .Q20H [facility] Last Admin: 07/24/18 20:38 Dose: 1,000 mls Lisinopril (Zestril) 40 mg PO QAM [facility] Last Admin: 07/25/18 09:54 Dose: 40 mg Metoprolol Tartrate (Lopressor) 50 mg PO BID [facility] Last Admin: 07/25/18 09:55 Dose: 50 mg Ondansetron HCl (Zofran) 4 mg SLOW IVP Q4H PRN PRN Reason: Nausea/Vomiting Last Admin: 07/19/18 14:27 Dose: 4 mg Oxybutynin Chloride (Ditropan) 5 mg PO Q8H PRN PRN Reason: Bladder Spasms Last Admin: 07/14/18 11:15 Dose: 5 mg Pantoprazole Sodium (Protonix) 40 mg IVP DAILY [facility] Last Admin: 07/25/18 09:57 Dose: 40 mg Potassium Chloride (Klor-Con 10) 10 meq PO DAILY [facility] Last Admin: 07/25/18 09:55 Dose: 10 meq Quetiapine Fumarate (Seroquel) 50 mg PO HS [facility] Last Admin: 07/24/18 20:32 Dose: 50 mg Senna (Senokot) 2 tab PO HSPRN PRN PRN Reason: Constipation Sodium Chloride (Flush - Normal Saline) 10 ml IVF PRN PRN PRN Reason: Saline Flush Last Admin: 07/22/18 08:19 Dose: 10 ml
[2018-07-25 16:07] VITALS: BP 165/75; TEMP 98.4
== END 2018-07-25 17:28 | DRG 686 ==
LOC: ERS 21:30 → 2NO 07-13 01:15 → IMCU/EMU 07-13 11:01 → T4-A 07-18 23:36
PROVIDERS: ADMIT Hospitalist; ATTEND Hospitalist
PROC: 30233N1 Transfusion of Nonautologous Red Blood Cells into Peripheral Vein, Percutaneous Approach (ICD-10-PCS; principal; 2018-07-14)
PROC: 30233N1 Transfusion of Nonautologous Red Blood Cells into Peripheral Vein, Percutaneous Approach (ICD-10-PCS; 2018-07-21)
DX: C67.9 Malignant neoplasm of bladder, unspecified (principal); G93.41 Metabolic encephalopathy; N39.0 Urinary tract infection, site not specified; D62 Acute posthemorrhagic anemia; N17.9 Acute kidney failure, unspecified; N18.3 Chronic kidney disease, stage 3 (moderate); I25.10 Atherosclerotic heart disease of native coronary artery without angina pectoris; F03.90 Unspecified dementia, unspecified severity, without behavioral disturbance, psychotic disturbance, mood disturbance, and anxiety; R31.0 Gross hematuria; B95.62 Methicillin resistant Staphylococcus aureus infection as the cause of diseases classified elsewhere; G30.9 Alzheimer's disease, unspecified; F02.80 Dementia in other diseases classified elsewhere, unspecified severity, without behavioral disturbance, psychotic disturbance, mood disturbance, and anxiety; I48.2 Chronic atrial fibrillation; Z66 Do not resuscitate; R13.12 Dysphagia, oropharyngeal phase; I10 Essential (primary) hypertension; E78.5 Hyperlipidemia, unspecified; Z85.828 Personal history of other malignant neoplasm of skin; Z95.1 Presence of aortocoronary bypass graft; Z79.82 Long term (current) use of aspirin; Z79.899 Other long term (current) drug therapy
CPT/HCPCS: 36415; 36416; 36430; 51702; 76770; 80048; 80053; 83735; 85014; 85018; 85025; 85049; 85610; 85730; 86850; 86900; 86901; 87077; 87086; 87186; 96374; A4216; C9113; G8996-GN-CJ; G8997-GN-CI; J1200; J1956; J2060; J2270; J2405; J3370; J3475; J3486; J7050; P9016; S0028

== ENCOUNTER 2018-08-29 17:26 | Emergency (ER) | payer MEDICARE ==
[2018-08-29 18:11] LABS: #Eosinphils 0.3 thou/uL (0.0-0.7); #Lymphocytes 1.2 thou/uL (1.20-3.40); #Monocytes 0.7 thou/uL (0.11-0.59); %Basophils 0.7 % (0.0-1.0); %Eosinophils 4.3 % (0.0-10.0); %Lymphocytes 19.8 % (21.0-51.0); %Monocytes 11.1 % (0.0-10.0); %Neutrophils 64.1 % (42.0-75.0); Hemoglobin 8.3 g/dL (14.0-18.0); Mean Corpuscular HGB CONC 31.3 g/dL (32.0-36.0); Mean Corpuscular Hemoglobin 25.7 pg (27.0-31.0); Mean Corpuscular Volume 82.1 fL (78.0-98.0); Mean Platelet Volume 7.4 fL (7.4-10.4); Platelet Count 370 thou/uL (130-400); RBC Distribution Width 14.2 % (11.5-14.5); Red Blood Cell (RBC) Count 3.24 mill/uL (4.70-6.10); White Blood Cell (WBC) Count 6.2 thou/uL (4.8-10.8)
[2018-08-29 18:33] LABS: ALT (SGPT) 9 U/L (8-55); AST (SGOT) 15 U/L (5-34); Alkaline Phosphatase 74 U/L (40-150); Anion Gap 12 mmol/L (10-20); BUN (Urea Nitrogen) 20 mg/dL (8.4-25.7); Bilirubin, Total 0.3 mg/dL (0.2-1.2); Calc. Creatinine Clearance 0 mL/min (70-130); Calcium 8.5 mg/dL (7.8-10.44); Carbon Dioxide 22 mmol/L (23-31); Chloride 110 mmol/L (98-107); Estimated GFR-MDRD 30; Globulin 3.6 g/dL (2.4-3.5); Glucose 98 mg/dL (83-110); Potassium 3.7 mmol/L (3.5-5.1); Protein, Total 6.6 g/dL (5.8-8.1); Sodium 140 mmol/L (136-145)
== END 2018-08-29 19:33 ==
LOC: ERS 17:26
DX: F03.90 Unspecified dementia, unspecified severity, without behavioral disturbance, psychotic disturbance, mood disturbance, and anxiety (principal); F32.9 Major depressive disorder, single episode, unspecified; I10 Essential (primary) hypertension; E78.5 Hyperlipidemia, unspecified
CPT/HCPCS: 36415; 80053; 85025; 99285

== ENCOUNTER 2018-10-02 13:34 | Emergency (ER) | payer MEDICARE ==
[2018-10-02 14:10] LABS: #Basophils 0.1 thou/uL (0.0-0.2); #Eosinphils 0.1 thou/uL (0.0-0.7); #Lymphocytes 1.6 thou/uL (1.20-3.40); #Monocytes 0.6 thou/uL (0.11-0.59); #Neutrophils 5.4 thou/uL (1.40-6.50); %Eosinophils 1.3 % (0.0-10.0); %Lymphocytes 20.8 % (21.0-51.0); %Monocytes 7.5 % (0.0-10.0); %Neutrophils 69.3 % (42.0-75.0); Hemoglobin 7.9 g/dL (14.0-18.0); Mean Corpuscular HGB CONC 31.9 g/dL (32.0-36.0); Mean Corpuscular Hemoglobin 24.1 pg (27.0-31.0); Mean Corpuscular Volume 75.6 fL (78.0-98.0); Mean Platelet Volume 7.9 fL (7.4-10.4); Platelet Count 339 thou/uL (130-400); RBC Distribution Width 15.1 % (11.5-14.5); Red Blood Cell (RBC) Count 3.29 mill/uL (4.70-6.10); White Blood Cell (WBC) Count 7.8 thou/uL (4.8-10.8)
[2018-10-02 14:30] LABS: ALT (SGPT) 7 U/L (8-55); AST (SGOT) 14 U/L (5-34); Albumin 3.2 g/dL (3.4-4.8); Alkaline Phosphatase 86 U/L (40-150); Anion Gap 12 mmol/L (10-20); BUN (Urea Nitrogen) 18 mg/dL (8.4-25.7); Bilirubin, Total 0.3 mg/dL (0.2-1.2); Calc. Creatinine Clearance 0 mL/min (70-130); Calcium 8.2 mg/dL (7.8-10.44); Carbon Dioxide 17 mmol/L (23-31); Chloride 109 mmol/L (98-107); Estimated GFR-MDRD 28; Globulin 3.4 g/dL (2.4-3.5); Glucose 109 mg/dL (83-110); Potassium 3.2 mmol/L (3.5-5.1); Protein, Total 6.6 g/dL (5.8-8.1); Sodium 135 mmol/L (136-145)
[2018-10-02 15:38] LABS: Bilirubin Negative (Negative); Blood, Urine Large (Negative); Clarity CLOUDY (Clear); Glucose, Urine (Dipstick) Negative (Negative); Leukocyte Large (Negative); Nitrite Negative (Negative); Protein, Urine (Dipstick) Trace mg/dL (Neg-Trace); pH, Urine 6.5 (5.0-9.0)
[2018-10-02 15:40] LABS: RBC/HPF GREATER THAN 50-TNTC HPF (0-3); WBC/HPF 21-50 HPF (0-3)
[2018-10-02 15:44] LABS: Pathc Cast-AUWi Flag 7.41 (0-2.49)
[2018-10-02 15:46] LABS: Hyaline Casts/LPF 0-3 HYALINE CAST LPF (0-3 Hyaline)
[2018-10-02 15:47] LABS: Bacteria/HPF 1+ HPF (None Seen); Manual Microscopic Reviewed? No Path Casts Seen; Renal Epithelial None Seen HPF (0-3); Transitional Epithelial NONE SEEN HPF (0-3)
== END 2018-10-02 15:43 | disposition home or self-care (01) ==
LOC: ERS 13:34
DX: D64.9 Anemia, unspecified (principal); I10 Essential (primary) hypertension; I25.10 Atherosclerotic heart disease of native coronary artery without angina pectoris; I48.91 Unspecified atrial fibrillation; E78.5 Hyperlipidemia, unspecified; Z87.891 Personal history of nicotine dependence; Z79.899 Other long term (current) drug therapy
CPT/HCPCS: 80053; 81003; 81015; 85025; 86850; 86900; 86901; 99285

== ENCOUNTER 2018-10-29 05:53 | Observation (INO) | payer MEDICARE ==
[2018-10-29 06:30] LABS: #Eosinphils 0.2 thou/uL (0.0-0.7); #Lymphocytes 1.3 thou/uL (1.20-3.40); #Monocytes 0.6 thou/uL (0.11-0.59); #Neutrophils 5.2 thou/uL (1.40-6.50); %Basophils 0.6 % (0.0-1.0); %Eosinophils 2.2 % (0.0-10.0); %Lymphocytes 18.4 % (21.0-51.0); %Monocytes 7.9 % (0.0-10.0); Hemoglobin 9.4 g/dL (14.0-18.0); Mean Corpuscular HGB CONC 30.7 g/dL (32.0-36.0); Mean Corpuscular Hemoglobin 23.5 pg (27.0-31.0); Mean Corpuscular Volume 76.3 fL (78.0-98.0); Mean Platelet Volume 7.9 fL (7.4-10.4); Platelet Count 286 thou/uL (130-400); Red Blood Cell (RBC) Count 3.99 mill/uL (4.70-6.10); White Blood Cell (WBC) Count 7.3 thou/uL (4.8-10.8)
[2018-10-29 06:43] LABS: INR-International Normal Ratio 1.2; Prothrombin Time 14.9 SEC (12.0-14.7)
[2018-10-29 06:46] LABS: ALT (SGPT) 7 U/L (8-55); AST (SGOT) 15 U/L (5-34); Albumin 3.2 g/dL (3.4-4.8); Alkaline Phosphatase 73 U/L (40-150); Anion Gap 13 mmol/L (10-20); BUN (Urea Nitrogen) 23 mg/dL (8.4-25.7); Bilirubin, Total 0.3 mg/dL (0.2-1.2); Calc. Creatinine Clearance 0 mL/min (70-130); Calcium 8.6 mg/dL (7.8-10.44); Carbon Dioxide 23 mmol/L (23-31); Chloride 109 mmol/L (98-107); Estimated GFR-MDRD 28; Globulin 3.7 g/dL (2.4-3.5); Glucose 92 mg/dL (83-110); Protein, Total 6.9 g/dL (5.8-8.1); Sodium 142 mmol/L (136-145)
[2018-10-29 06:50] LABS: Potassium 2.7 mmol/L (3.5-5.1)
--- NOTE | 2018-10-29 08:06 | CT ---
PRELIMINARY REPORT/[facility]/EMERGENTY AFTER-HOURS PROCEDURE CT Abdomen and Pelvis Without Intravenous Contrast EXAM DATE/TIME: 10/29/2018 6:26 AM CLINICAL HISTORY: 88 years old, male; Signs and symptoms; Other: Hematuria; Patient HX: Additional history obtained fro m ems, 88 yo m presents to ed via ems with hematuria. PT has HX of alzheimer's and is unable to provi de accurate history. Ems reports PT has hematuria. Ems reports PT has HX of bladder cancer. PT denies fever, denies vomiting, denies any other complaints. TECHNIQUE: Axial computed tomography images of the abdomen and pelvis without intravenous contrast.All CT scans at this facility use at least one of these dose optimization techniques: automated exposure control; mA and/or kV adjustment per patient size (includes targeted exams where dose is matched to clinical indication); or iterative reconstruction. Coronal reformatted images were created and reviewed. COMPARISON: No relevant prior studies available. FINDINGS: Tubes, catheters and devices: A pacemaker device is present, and its leads are in appropriate positio n. Lower thorax: There are trace bilateral pleural effusions with dependent atelectasis. The heart demon strates mild diffuse enlargement. A small hiatal hernia is present. ABDOMEN: Liver: The liver is within normal limits for this noncontrast study. Gallbladder and bile ducts: There has been a cholecystectomy. Pancreas: The pancreas appears normal. No ductal dilatation. Spleen: The spleen is normal. Adrenals: The adrenal glands are normal. Kidneys and ureters: The right kidney is normal. There is a left ureteral stent with its coiled ends appropriately positioned in the left collecting system and bladder. There is mild proximal LEFT hydro ureter and marked hyperdense fluid within the urinary bladder consistent with hemorrhage. Stomach and bowel: The stomach is normal. The duodenum is unremarkable. The colon is normal. Appendix: A normal appendix is identified. PELVIS: Bladder: See above. Reproductive: Unremarkable as visualized. ABDOMEN and PELVIS: Intraperitoneal space: Normal. No free air. No significant fluid collection. Bones/joints: There is a LEFT inferior pubic ramus fracture with overlying callus formation suggestiv e of ongoing healing. Soft tissues: Unremarkable. Vasculature: The vasculature demonstrates diffuse severe atherosclerotic calcification. Lymph nodes: Normal. No enlarged lymph nodes. IMPRESSION: 1. There is a left ureteral stent with its coiled ends appropriately positioned in the left collectin g system and bladder. 2. There is mild proximal LEFT hydroureter and marked hyperdense fluid within the urinary bladder con sistent with hemorrhage. Thank you for allowing us to participate in the care of your patient. Dictated and Authenticated by: Edward Bentley MD 10/29/2018 6:53 AM Central Time ([place] & [place]) FINAL REPORT ABDOMEN CT WITHOUT CONTRAST PELVIS CT WITHOUT CONTRAST: Date: 10/29/18 HISTORY: Hematuria. Alzheimer's disease. History of bladder cancer. FINDINGS/IMPRESSION: There is a left ureteral stent, appropriately positioned. There is dilatation of the left intra and e xtrarenal collecting system. Dilatation is mild with regards to the intrarenal collecting system and moderate with regards to the left ureter. There is hyperdensity within the left aspect of the urinary bladder consistent with hemorrhage and/or mass. This report is in agreement with the preliminary report by [facility]. POS: NADIA
[2018-10-29 08:09] LABS: Blood, Urine Large (Negative); Glucose, Urine (Dipstick) Negative (Negative); Leukocyte Moderate (Negative); Nitrite Positive (Negative)
[2018-10-29 08:22] LABS: Clarity Turbid (Clear); Specific Gravity, Urine 1.012 (1.002-1.036)
[2018-10-29 08:23] LABS: pH, Urine 6.5 (5.0-9.0)
[2018-10-29 08:24] LABS: Protein, Urine (Dipstick) 300 mg/dL (Neg-Trace)
[2018-10-29 08:26] LABS: Bilirubin Negative (Negative); RBC/HPF GREATER THAN 50-TNTC HPF (0-3); Squamous Epithelial 0-3 HPF (0-3)
[2018-10-29 08:27] LABS: Bacteria/HPF 2+ HPF (None Seen)
[2018-10-29] MEDS ORDERED: Midazolam HCl 2 mg/2 ml Vial ONE (08:40)
[2018-10-29] MEDS ORDERED: Sodium Chloride 0.65% Nasal 44 ML BOT EA NARE PRN (09:59)
[2018-10-29] MEDS ORDERED: Senokot S 8.6-50 MG TAB PO PRN (09:59)
[2018-10-29] MEDS ORDERED: hydrALAZINE 20 MG/ML VIAL SLOW IVP PRN (09:59)
[2018-10-29] MEDS ORDERED: Calcium Carbonate 500 MG ChewTAB PO PRN (09:59)
[2018-10-29] MEDS ORDERED: Diabetic Tussin 200 MG/10 ML UDCUP PO PRN (09:59)
[2018-10-29] MEDS ORDERED: HYDROcodone/Acetaminophen 5/325 mg Tablet PO PRN (09:59)
[2018-10-29] MEDS ORDERED: Artificial Tears 18 DROP/0.9 ML EA EYE PRN (09:59)
[2018-10-29] MEDS ORDERED: Cepastat Lozenges 1 LOZ PO PRN (09:59)
[2018-10-29] MEDS ORDERED: Loratadine 10 MG TAB PO PRN (09:59)
[2018-10-29] MEDS ORDERED: Acetaminophen 325 MG TAB PO PRN (09:59)
[2018-10-29] MEDS ORDERED: Bisacodyl 5 MG TAB PO PRN (09:59)
[2018-10-29] MEDS ORDERED: Ondansetron PF 4 MG/2 ML Vial IVP PRN (09:59)
[2018-10-29] MEDS ORDERED: Loperamide HCl 2 MG CAP PO PRN (09:59)
[2018-10-29] MEDS ORDERED: Eucerin (Mineral Oil/Petrolatum,White) 30 gm Jar TOP PRN (09:59)
[2018-10-29] MEDS ORDERED: Lidocaine 2% Jelly 5 ML TUBE ONE (09:59)
[2018-10-29] MEDS ORDERED: Ondansetron ODT 4 MG TAB PO PRN (09:59)
[2018-10-29] MEDS ORDERED: Bisacodyl 10 MG SUPP PR PRN (09:59)
[2018-10-29] MEDS ORDERED: Enoxaparin Sodium 30 MG/0.3 ML SYRINGE ONE (12:51)
[2018-10-29] MEDS ORDERED: cefTRIAXone\\ROCEPHIN 1 GM in Sodium Chloride 0.9% 100 ML IVPB SCH (14:00)
--- NOTE | 2018-10-29 14:04 | HP ---
PRIMARY CARE PHYSICIAN: Dr. Morgan Barton. REASON FOR ADMISSION: Sent from [facility] for gross hematuria. 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 This patient is not able to provide any history because he has pretty much advanced dementia. His son is present at bedside, who reports that this patient gets intermittent hematuria and this is the third time [facility] sent him to the ER for evaluation. The patient did not have any fever or any pain anywhere in his body. The patient appeared comfortable. His urine was grossly bloody. ER physician decided to keep this patient in the hospital for further evaluation. Routine blood test showed hemoglobin 9.4, which is pretty much stable from previous, even better number than previous. His potassium was 2.7, which was replaced. His creatinine remained stable range. At this point, the patient is being admitted to medical floor for observation. REVIEW OF SYSTEMS: All review of system tried to review with the patient, but unable to review and not reliable because of patient's advanced dementia. 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 PAST SURGICAL HISTORY: Cystoscopy and bladder biopsy, right carotid endarterectomy, tonsillectomy, prostate biopsy, skin cancer removal, male breast cancer removal , and pacemaker. PAST PSYCHIATRIC HISTORY: Advanced Alzheimer dementia. ALLERGIES: NO KNOWN DRUG ALLERGIES. CURRENT HOME MEDICATIONS: 1. Vitamin D3 1000 units p.o. daily. 2. Vitamin B12 1000 mcg p.o. daily. 3. Aricept 10 mg daily. 4. Multaq 400 mg b.i.d. 5. Hydralazine 25 mg p.o. t.i.d. 6. Lisinopril 40 mg daily. 7. Metoprolol 50 mg p.o. b.i.d. 8. Zocor 20 mg p.o. at bedtime. 9. Ditropan 5 mg q.8 hourly p.r.n. 10. Seroquel 50 mg p.o. at bedtime. EMERGENCY ROOM COURSE: The patient has received Levaquin 750 mg, Versed 1 mg, and potassium chloride 60 mEq. SOCIAL HISTORY: The patient lives at [facility], [facility]. No history of tobacco, alcohol, or illicit drug abuse. He is a former smoker. He quit smoking more than 10 years ago. He has DNR status and his son is surrogate decision maker. FAMILY HISTORY: No family history of coronary artery disease, stroke, or cancer as per son. PHYSICAL EXAMINATION: VITAL SIGNS: Vital signs currently; blood pressure 179/82, pulse 76, respiratory rate 18, temperature 97.7, and saturation 99% on room air. Weight 68 kg. GENERAL: The patient is currently alert, awake, confused, demented. No obvious acute distress. Hypertensive. HEENT: Head, normocephalic and atraumatic. Eyes; pupils are round and reactive to light. Extraocular muscle intact. ENT, oropharynx within normal limits. Moist mucous membrane. No oral lesion. No pharyngeal erythema. No exudate. NECK: Supple. No JVD. No thyromegaly. No carotid bruit. LUNGS: Clear to auscultation without any rhonchi or rales. CARDIAC: S1 and S2, irregular. Soft systolic murmur noted. No gallop. No rub. ABDOMEN: Soft. Bowel sounds are present. No suprapubic tenderness. BACK: Unremarkable. No CVA tenderness. EXTREMITIES: Upper extremities; passive movement of all joints are normal. Lower extremities; no edema. Good distal pulsation. SKIN: No skin rash. HEMATOLOGICAL SYSTEM: No lymphadenopathy. PSYCHIATRIC: Normal affect. NEUROLOGIC: Nonfocal examination. He is moving all 4 limbs. IMAGING STUDIES: Abdomen and pelvis CT scan done in the emergency room, which showed hematuria in the bladder, but no acute process. Stent is working well with mild left-sided hydronephrosis. LABORATORY DATA: CBC; WBC 7.3, hemoglobin 9.4, platelet 286. INR 1.2. Sodium 142, potassium 2.7, chloride 110, carbon dioxide 23, anion gap 13, BUN 23, creatinine 2.23, glucose 92, calcium 8.6. LFT; AST 15, ALT 7, alkaline phosphatase 73, albumin 3.2. Urinalysis suggestive of urinary tract infection. ASSESSMENT AND PLAN: 1. 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 This patient is not a candidate for any kind of intervention. I spoke with Urology and the patient's son, both agreed to treat him conservatively without any aggressive intervention. 2. Urinary tract infection. The patient will be given Rocephin 1 g q.24 hours, and upon discharge, we will consider giving him few days of oral antibiotic therapy depending upon culture. 3. Hypokalemia replaced in the emergency room. We will repeat BMP tomorrow and replace if needed. We will check magnesium level as well. 4. Chronic kidney disease stage 3. We will monitor renal function. 5. Anemia, normocytic normochromic. The patient's hemoglobin has not significantly dropped from previous and is microcytic. We will continue ferrous sulfate 325 mg p.o. daily. We will check ferritin, and if needed, we will go for iron infusion IV bag one time dose. 6. Advanced Alzheimer dementia. We will continue Aricept 10 mg p.o. at bedtime and Seroquel 50 mg p.o. at bedtime. The patient will need supportive treatment. 7. Chronic atrial fibrillation. Continue Multaq 400 mg p.o. b.i.d. and metoprolol 50 mg p.o. b.i.d. The patient is not a candidate for chronic anticoagulation because of recurrent gross hematuria and advanced dementia. 8. Hypertension. Continue lisinopril 40 mg p.o. daily and metoprolol 50 mg p.o. b.i.d. 9. Dyslipidemia. Continue Zocor 20 mg p.o. at bedtime. 10. Deep venous thrombosis prophylaxis not needed because of bleeding. GI prophylaxis with Pepcid 20 mg p.o. daily. CODE STATUS: I spoke with the patient's son, who is medical power of document review attorney and confirmed the patient's DNR status. DISPOSITION PLAN: Likely within 24 hours. PLAN OF CARE: Discussed with the patient's son and the patient at bedside in the emergency room. I also spoke with Dr. Green. Pt is discharged from ED to [facility] Job ID: [id number] [facility]
[2018-10-29] MEDS ORDERED: hydrALAZINE 25 MG TAB PO SCH (15:00)
[2018-10-29] MEDS ORDERED: Dronedarone HCl 400 MG TAB PO SCH (17:00)
[2018-10-29] MEDS ORDERED: Metoprolol Tartrate 50 MG TAB PO SCH (21:00)
[2018-10-29] MEDS ORDERED: Atorvastatin Calcium 10 MG TAB PO SCH (21:00)
--- NOTE | 2018-10-29 21:24 | CON ---
DATE OF CONSULTATION: 10/29/2018 HISTORY OF PRESENT ILLNESS: This is an 88-year-old white male, who is known for a great number of years. He has had bladder cancer that unfortunately progressed to muscle invasive disease; probably about a year, may be a little longer than a year ago. Because of his advanced dementia and his health, his family had elected not to proceed on with any definitive therapy. He did develop some obstruction to the ureter when he had his stent changed every few months. He came into the ER today because the skilled nursing where he stays noticed 3 bloody voided urine. Here in the ER, the nurse has tried to pass the catheter twice and were unsuccessful. It does not appear that he was in retention but was urinating okay, so I am not exactly sure what the thought was in placing the catheter. By history, I know that this patient tolerates Harrison catheters very poorly. The last time he was in where we did have to go in and scrape out some tumor to stop bleeding and to redo the stent, he was in the hospital about 10 days in restraints while this healed up with the catheter in, so he is the patient who should not get a catheter unless he is in retention. I watched this patient actually urinate into a container with couple 100 mL of kind of a light goodwin urine, did not see any clots, and we bladder scanned him after that for 100 mL. For this reason, I do not think it is appropriate to try to pass a Harrison catheter at this point, and I also have written a note to be sent back with this the patient to the skilled nursing that he should not be brought to the emergency room because of blood in his urine as this is expected because of bladder cancer. If he is unable to urinate, then he needs to come back and then we will have to deal with the catheter. Otherwise, we will see him and change his stent out at his regular date. We will go ahead and get a urine culture done, and this will be done as he is having a little bit of dysuria. The urinalysis they sent here showed some bacteria, some white cells, but mostly red cells. His creatinine is elevated, but this has been that way. His potassium is low and that may be something to replace while he is in the ER. His hemoglobin is 9.4. His platelet count was normal. So we did finalize this is the patient who has gross hematuria because of his bladder cancer. He does not require transfusion and should not in my opinion and in his family's opinion be transfused even if his hemoglobin down to much lower values. He should not be brought back to the ER just for blood in the urine, this should be expected off and on. He may require some antibiotics, but we will see what his culture shows returns. He is afebrile currently. Job ID: [id number]
[2018-10-30] MEDS ORDERED: Ferrous Sulfate 325 MG TAB PO SCH (08:00)
[2018-10-30] MEDS ORDERED: Donepezil HCl 10 MG TAB PO SCH (09:00)
[2018-10-30] MEDS ORDERED: Famotidine 20 MG TAB PO SCH (09:00)
[2018-10-30] MEDS ORDERED: Lisinopril 20 MG TAB PO SCH (09:00)
[2018-10-30] MEDS ORDERED: Cyanocobalamin (Vitamin B-12) 1,000 MCG TAB PO SCH (09:00)
== END 2018-10-29 11:55 | disposition home or self-care (01) ==
LOC: ERS 05:53 → ERHOLD 08:32
PROVIDERS: ADMIT Internal Medicine; ATTEND Internal Medicine
DX: C67.9 Malignant neoplasm of bladder, unspecified (principal); R31.0 Gross hematuria; G30.9 Alzheimer's disease, unspecified; F02.80 Dementia in other diseases classified elsewhere, unspecified severity, without behavioral disturbance, psychotic disturbance, mood disturbance, and anxiety; I48.2 Chronic atrial fibrillation; I25.10 Atherosclerotic heart disease of native coronary artery without angina pectoris; E78.5 Hyperlipidemia, unspecified; I73.9 Peripheral vascular disease, unspecified; N39.0 Urinary tract infection, site not specified; E87.6 Hypokalemia; I12.9 Hypertensive chronic kidney disease with stage 1 through stage 4 chronic kidney disease, or unspecified chronic kidney disease; N18.3 Chronic kidney disease, stage 3 (moderate); D64.9 Anemia, unspecified; Z66 Do not resuscitate; Z87.891 Personal history of nicotine dependence; Z79.899 Other long term (current) drug therapy; Z95.0 Presence of cardiac pacemaker
CPT/HCPCS: 36415; 51798; 74176; 80053; 81003; 81015; 85025; 85610; 87086; 96365; 96366; 96375; J0696; J1650; J1956; J2250; J7050

== ENCOUNTER 2018-10-31 12:44 | Emergency (ER) | payer MEDICARE ==
[2018-10-31 13:32] LABS: #Basophils 0.1 thou/uL (0.0-0.2); #Eosinphils 0.2 thou/uL (0.0-0.7); #Lymphocytes 2.1 thou/uL (1.20-3.40); #Monocytes 0.6 thou/uL (0.11-0.59); #Neutrophils 5.6 thou/uL (1.40-6.50); %Basophils 0.9 % (0.0-1.0); %Eosinophils 2.1 % (0.0-10.0); %Lymphocytes 24.3 % (21.0-51.0); %Monocytes 7.3 % (0.0-10.0); %Neutrophils 65.4 % (42.0-75.0); Hemoglobin 9.6 g/dL (14.0-18.0); Mean Corpuscular HGB CONC 31.9 g/dL (32.0-36.0); Mean Corpuscular Hemoglobin 24.5 pg (27.0-31.0); Mean Corpuscular Volume 76.7 fL (78.0-98.0); Mean Platelet Volume 8.2 fL (7.4-10.4); Platelet Count 297 thou/uL (130-400); RBC Distribution Width 18.1 % (11.5-14.5); Red Blood Cell (RBC) Count 3.91 mill/uL (4.70-6.10); White Blood Cell (WBC) Count 8.6 thou/uL (4.8-10.8)
[2018-10-31 13:41] LABS: INR-International Normal Ratio 1.1; Prothrombin Time 14.3 SEC (12.0-14.7)
[2018-10-31 13:42] LABS: PTT 29.1 SEC (22.9-36.1)
--- NOTE | 2018-10-31 13:52 | CT ---
HEAD CT WITHOUT CONTRAST: Date: 10/31/18 COMPARISON: 11/22/17. HISTORY: Mental status changes. TECHNIQUE: Serial axial CT imaging at 5 mm intervals from vertex through skull base without contrast. FINDINGS: There is atherosclerotic calcification of the cavernous carotid arteries in the distal left vertebral artery. The imaged paranasal sinuses/mastoid air cells are well aerated. There is no displaced calvarial frac ture. There is no intracranial hemorrhage, midline shift, or mass effect. There is mild diffuse cerebral vo lume loss with associated prominence of the CSF-containing spaces, similar when compared to prior emmett ging. In addition, there is periventricular and deep white matter hypodensity, right greater than lef t, suggesting stable small vessel disease. IMPRESSION: Stable chronic findings as described above. No evidence for intracranial hemorrhage. POS: [facility]
[2018-10-31 13:54] LABS: ALT (SGPT) Less than 7 U/L (8-55); AST (SGOT) 14 U/L (5-34); Albumin 3.3 g/dL (3.4-4.8); Alkaline Phosphatase 76 U/L (40-150); Anion Gap 8 mmol/L (10-20); BUN (Urea Nitrogen) 24 mg/dL (8.4-25.7); Bilirubin, Total 0.4 mg/dL (0.2-1.2); Calc. Creatinine Clearance 0 mL/min (70-130); Calcium 9.4 mg/dL (7.8-10.44); Carbon Dioxide 29 mmol/L (23-31); Chloride 107 mmol/L (98-107); Estimated GFR-MDRD 29; Globulin 3.7 g/dL (2.4-3.5); Glucose 89 mg/dL (83-110); Sodium 141 mmol/L (136-145)
[2018-10-31 14:24] LABS: CKMB 1.3 ng/mL (0-6.6)
[2018-10-31] MEDS ORDERED: Potassium Chloride 20 MEQ TAB ONE (14:37)
[2018-10-31 17:34] LABS: CKMB 1.5 ng/mL (0-6.6)
--- NOTE | 2018-11-02 13:54 | EKG ---
Test Reason : Blood Pressure : / mmHG Vent. Rate : 074 BPM Atrial Rate : 077 BPM P-R Int : 000 ms QRS Dur : 162 ms QT Int : 522 ms P-R-T Axes : 000 -63 118 degrees QTc Int : 579 ms Electronic ventricular pacemaker Confirmed by AMNA ROBERTS ([id number]), assignment desk editor SCOT JIANG ([id number]) on 11/02/2018 1:54:25 PM Referred By: Confirmed By:AMNA ROBERTS
== END 2018-10-31 17:58 ==
LOC: ERS 12:44
DX: I95.9 Hypotension, unspecified (principal); E87.6 Hypokalemia; I12.9 Hypertensive chronic kidney disease with stage 1 through stage 4 chronic kidney disease, or unspecified chronic kidney disease; N18.9 Chronic kidney disease, unspecified; D63.1 Anemia in chronic kidney disease; I48.91 Unspecified atrial fibrillation; E78.5 Hyperlipidemia, unspecified; Z79.899 Other long term (current) drug therapy; Z87.891 Personal history of nicotine dependence
CPT/HCPCS: 36415; 70450; 80053; 82553; 84484; 85025; 85610; 85730; 93005; 94760

== ENCOUNTER 2018-11-21 11:20 | Emergency (ER) | payer MEDICARE ==
[2018-11-21 11:54] LABS: Bilirubin Negative (Negative); Blood, Urine Moderate (Negative); Glucose, Urine (Dipstick) Negative (Negative)
[2018-11-21 12:05] LABS: Clarity Cloudy (Clear)
[2018-11-21 12:06] LABS: Nitrite Unable to Interpret (Negative); Protein, Urine (Dipstick) 100 mg/dL (Neg-Trace); Urobilinogen UNABLE TO INTERPRET mg/dL (0.2-1.0)
[2018-11-21 12:07] LABS: Leukocyte Small (Negative)
[2018-11-21 12:08] LABS: Specific Gravity, Urine 1.014 (1.002-1.036)
[2018-11-21 12:09] LABS: RBC/HPF GREATER THAN 50-TNTC HPF (0-3)
[2018-11-21 12:10] LABS: Bacteria/HPF None Seen HPF (None Seen); Hyaline Casts/LPF NONE SEEN LPF (0-3 Hyaline); Squamous Epithelial None Seen HPF (0-3)
[2018-11-21 13:23] LABS: #Eosinphils 0.1 thou/uL (0.0-0.7); #Monocytes 0.8 thou/uL (0.11-0.59); #Neutrophils 6.7 thou/uL (1.40-6.50); %Basophils 0.2 % (0.0-1.0); %Eosinophils 1.2 % (0.0-10.0); %Lymphocytes 11.6 % (21.0-51.0); %Monocytes 9.6 % (0.0-10.0); %Neutrophils 77.4 % (42.0-75.0); Hemoglobin 7.7 g/dL (14.0-18.0); Mean Corpuscular HGB CONC 31.9 g/dL (32.0-36.0); Mean Corpuscular Hemoglobin 25.2 pg (27.0-31.0); Mean Platelet Volume 7.3 fL (7.4-10.4); Platelet Count 402 thou/uL (130-400); RBC Distribution Width 19.4 % (11.5-14.5); Red Blood Cell (RBC) Count 3.03 mill/uL (4.70-6.10); White Blood Cell (WBC) Count 8.6 thou/uL (4.8-10.8)
[2018-11-21 13:28] LABS: INR-International Normal Ratio 1.2; PTT 31.7 SEC (22.9-36.1); Prothrombin Time 15.2 SEC (12.0-14.7)
[2018-11-21 13:37] LABS: Anisocytosis SLIGHT = 6-15 cells (100X) (0-5/hpf); Hypochromia SLIGHT = 6-15 cells (100X) (0-5/hpf); MDiff Complete? YES; Ovalocytes SLIGHT = 2-5 cells (100X) (0-1/hpf); PLT Morphology Comment Appears Increased; Polychromasia SLIGHT = 2-3 cells (100X) (0-2/hpf)
[2018-11-21 13:46] LABS: ALT (SGPT) 10 U/L (8-55); AST (SGOT) 13 U/L (5-34); Alkaline Phosphatase 79 U/L (40-150); Anion Gap 12 mmol/L (10-20); BUN (Urea Nitrogen) 29 mg/dL (8.4-25.7); Bilirubin, Total 0.2 mg/dL (0.2-1.2); Calc. Creatinine Clearance 0 mL/min (70-130); Calcium 8.4 mg/dL (7.8-10.44); Carbon Dioxide 18 mmol/L (23-31); Chloride 113 mmol/L (98-107); Estimated GFR-MDRD 32; Globulin 3.5 g/dL (2.4-3.5); Glucose 121 mg/dL (83-110); Potassium 4.1 mmol/L (3.5-5.1); Protein, Total 6.5 g/dL (5.8-8.1); Sodium 139 mmol/L (136-145)
== END 2018-11-21 15:37 | disposition home or self-care (01) ==
LOC: ERS 11:20
DX: R31.9 Hematuria, unspecified (principal); C67.9 Malignant neoplasm of bladder, unspecified; I10 Essential (primary) hypertension; F03.90 Unspecified dementia, unspecified severity, without behavioral disturbance, psychotic disturbance, mood disturbance, and anxiety; E78.5 Hyperlipidemia, unspecified; D64.9 Anemia, unspecified; Z87.891 Personal history of nicotine dependence; Z79.899 Other long term (current) drug therapy
CPT/HCPCS: 36415; 80053; 81003; 81015; 85025; 85610; 85730; 87086; 87186; 99283